=== PATIENT | male | born 1965 | race Caucasian/White ===

== ENCOUNTER 2016-11-27 10:39 | Inpatient (IN) | payer BC ==
[2016-11-27] MEDS ORDERED: ASPIRIN 81 MG CHEW PO STA (11:03)
[2016-11-27] MEDS ORDERED: NITROGLYCERIN OINT 1 INCH/GM PACKET TOPICAL STA (11:03)
--- NOTE | 2016-11-27 11:06 | ED ---
General Adult HPI - General Chief complaint: Chest Pain Stated complaint: Chest Pain Time Seen by Provider: 11/27/16 10:45 Source: patient, RN notes reviewed Mode of arrival: wheelchair Limitations: no limitations - History of Present Illness Initial comments: This is a 51-year-old male who presents to the emergency department with past medical history significant for myocardial infarction with a stent placement last year. Patient states he also has high blood pressure and high cholesterol and he has recently quit smoking. Patient states he was at work today not doing anything strenuous when he started having pain in the left side of his chest but also radiates down his arm made him short of breath and he was mildly diaphoretic. Patient denies any nausea or vomiting. Patient denies abdominal pain. Patient denies any lightheadedness dizziness or near syncopal episode. Patient denies any numbness or weakness. Patient denies any recent fever chills or cough. Patient denies any calf pain or leg swelling. - Related Data Home Medications Medication Instructions Recorded Confirmed Losartan-Hctz 50-12.5 mg [Hyzaar 1 tab PO DAILY 04/24/16 11/27/16 50-12.5] Omeprazole 20 mg PO DAILY 04/24/16 11/27/16 Atorvastatin [Lipitor] 80 mg PO HS 11/27/16 11/27/16 Previous Rx's Medication Instructions Recorded Metoprolol Tartrate [Lopressor] 25 mg PO BID #60 tab 04/27/16 Nitroglycerin Sl Tabs [Nitrostat] 0.4 mg SUBLINGUAL Q5M PRN #25 tab 04/27/16 Prasugrel [Effient] 10 mg PO DAILY #30 tab 04/27/16 Allergies Allergy/AdvReac Type Severity Reaction Status Date / Time No Known Allergies Allergy Verified 11/27/16 12:04 Review of Systems ROS Statement: Those systems with pertinent positive or pertinent negative responses have been documented in the HPI. ROS Other: All systems not noted in ROS Statement are negative. Past Medical History Past Medical History: Asthma, GERD/Reflux, Hyperlipidemia, Hypertension, Myocardial Infarction ([place]) Additional Past Medical History / Comment(s): "STATED HAD STRESS TEST AT [facility] FEBRUARY 18 2016 AND IT WAS NEG", 04-24-16 STEMI, KIDNEY STONE, DIVERTICULITIS, SEVERAL ABD INC HERNIA'S History of Any Multi-Drug Resistant Organisms: None Reported Past Surgical History: Unable to Obtain Additional Past Surgical History / Comment(s): 04-24-16 HEART CATH W/ STENT TO LAD. BOWEL RESECTION ,COLOSTOMY THEN REVERSAL-PT STATED HAS HAD TOTAL OF 7 SX FOR THIS, ABD HERNIA REPAIR W/ MESH. Past Anesthesia/Blood Transfusion Reactions: No Reported Reaction Past Psychological History: No Psychological Hx Reported Smoking Status: Former smoker Past Alcohol Use History: None Reported Additional Past Alcohol Use History / Comment(s): STARTED SMOKING AT AGE 15, SMOKES 1 PPD. Past Drug Use History: None Reported - Past Family History Father Family Medical History: Cancer, Congestive Heart Failure (CHF) Additional Family Medical History / Comment(s): COLON CANCER Mother Family Medical History: CVA/TIA Brother(s) Additional Family Medical History / Comment(s): brother has antithrombin III deficiency and cardiolipin antibody General Exam - General Exam Comments Initial Comments: GENERAL: Patient is well-developed and well-nourished. Patient is nontoxic and well- hydrated and is in mild distress. ENT: Neck is soft and supple. No significant lymphadenopathy is noted. Oropharynx is clear. Moist mucous membranes. Neck has full range of motion without eliciting any pain. EYES: The sclera were anicteric and conjunctiva were pink and moist. Extraocular movements were intact and pupils were equal round and reactive to light. Eyelids were unremarkable. PULMONARY: Unlabored respirations. Good breath sounds bilaterally. No audible rales rhonchi or wheezing was noted. CARDIOVASCULAR: There is a regular rate and rhythm without any murmurs gallops or rubs. ABDOMEN: Soft and nontender with normal bowel sounds. No palpable organomegaly was noted. There is no palpable pulsatile mass. SKIN: Skin is clear with no lesions or rashes and otherwise unremarkable. NEUROLOGIC: Patient is alert and oriented x3. Cranial nerves II through XII are grossly intact. Motor and sensory are also intact. Normal speech, volume and content. Symmetrical smile. MUSCULOSKELETAL: Normal extremities with adequate strength and full range of motion. No lower extremity swelling or edema. No calf tenderness. LYMPHATICS: No significant lymphadenopathy is noted PSYCHIATRIC: Normal psychiatric evaluation. Normal interpersonal interactions appears functionally intact in deals appropriately with others. No signs of depression. No signs of anxiety. Limitations: no limitations Course Vital Signs 11/27/16 11/27/16 11/27/16 10:42 11:14 11:21 Temperature 98.1 F Pulse Rate 68 55 L Respiratory 20 18 Rate Blood Pressure 132/80 127/71 113/69 O2 Sat by Pulse 99 98 Oximetry Medical Decision Making - Medical Decision Making EKG shows a sinus bradycardia at 49 bpm HI interval is 164 QRS is 88 QT interval 370 QTC is 374. Patient's EKG shows no ST segment depression or T- wave abdomen is noted Chest x-ray shows no acute abnormality. I placed the patient on heparin because of his past history as well as his clinical presentation today. I spoke with Dr. Garvin and he agreed to admit the patient admitted the patient and consult cardiology I continue the heparin Nitropaste and aspirin on the floor. I wrote admitting orders. - Lab Data Result diagrams: 11/27/16 11:00 11/27/16 11:00 Lab Results 11/27/16 11/27/16 11/27/16 Range/Units 11:00 11:00 11:00 WBC 7.8 (3.8-10.6) k/uL RBC 5.16 (4.30-5.90) m/uL Hgb 15.6 (13.0-17.5) gm/dL Hct 47.6 (39.0-53.0) % MCV 92.3 (80.0-100.0) fL MCH 30.2 (25.0-35.0) pg MCHC 32.8 (31.0-37.0) g/dL RDW 13.8 (11.5-15.5) % Plt Count 234 (150-450) k/uL Neutrophils % 71 % Lymphocytes % 19 % Monocytes % 6 % Eosinophils % 2 % Basophils % 1 % Neutrophils # 5.5 (1.3-7.7) k/uL Lymphocytes # 1.5 (1.0-4.8) k/uL Monocytes # 0.4 (0-1.0) k/uL Eosinophils # 0.2 (0-0.7) k/uL Basophils # 0.0 (0-0.2) k/uL PT (9.0-12.0) sec INR (<1.1) APTT (22.0-30.0) sec Sodium 139 (137-145) mmol/L Potassium 4.1 (3.5-5.1) mmol/L Chloride 103 (98-107) mmol/L Carbon Dioxide 28 (22-30) mmol/L Anion Gap 8 mmol/L BUN 15 (9-20) mg/dL Creatinine 0.80 (0.66-1.25) mg/dL Est GFR (MDRD) Af Amer >60 (>60 ml/min/1.73 sqM) Est GFR (MDRD) Non-Af >60 (>60 ml/min/1.73 sqM) Glucose 110 H (74-99) mg/dL Calcium 9.1 (8.4-10.2) mg/dL Magnesium 1.9 (1.6-2.3) mg/dL Total Bilirubin 0.9 (0.2-1.3) mg/dL AST 36 (17-59) U/L ALT 58 (21-72) U/L Alkaline Phosphatase 101 (38-126) U/L Total Creatine Kinase 362 H (55-170) U/L CK-MB (CK-2) 2.9 H* (0.0-2.4) ng/mL CK-MB (CK-2) Rel Index 0.8 Troponin I <0.012 (0.000-0.034) ng/mL Total Protein 7.1 (6.3-8.2) g/dL Albumin 4.2 (3.5-5.0) g/dL 11/27/16 Range/Units 11:00 WBC (3.8-10.6) k/uL RBC (4.30-5.90) m/uL Hgb (13.0-17.5) gm/dL Hct (39.0-53.0) % MCV (80.0-100.0) fL MCH (25.0-35.0) pg MCHC (31.0-37.0) g/dL RDW (11.5-15.5) % Plt Count (150-450) k/uL Neutrophils % % Lymphocytes % % Monocytes % % Eosinophils % % Basophils % % Neutrophils # (1.3-7.7) k/uL Lymphocytes # (1.0-4.8) k/uL Monocytes # (0-1.0) k/uL Eosinophils # (0-0.7) k/uL Basophils # (0-0.2) k/uL PT 10.7 (9.0-12.0) sec INR 1.1 (<1.1) APTT 23.4 (22.0-30.0) sec Sodium (137-145) mmol/L Potassium (3.5-5.1) mmol/L Chloride (98-107) mmol/L Carbon Dioxide (22-30) mmol/L Anion Gap mmol/L BUN (9-20) mg/dL Creatinine (0.66-1.25) mg/dL Est GFR (MDRD) Af Amer (>60 ml/min/1.73 sqM) Est GFR (MDRD) Non-Af (>60 ml/min/1.73 sqM) Glucose (74-99) mg/dL Calcium (8.4-10.2) mg/dL Magnesium (1.6-2.3) mg/dL Total Bilirubin (0.2-1.3) mg/dL AST (17-59) U/L ALT (21-72) U/L Alkaline Phosphatase (38-126) U/L Total Creatine Kinase (55-170) U/L CK-MB (CK-2) (0.0-2.4) ng/mL CK-MB (CK-2) Rel Index Troponin I (0.000-0.034) ng/mL Total Protein (6.3-8.2) g/dL Albumin (3.5-5.0) g/dL Critical Care Time Critical Care Time: Yes Total Critical Care Time: 35 Disposition Clinical Impression: Unstable angina pectoris Disposition: ADMITTED IP TO THIS [facility] Time of Disposition: 12:08
[2016-11-27 11:21] LABS: Basophils % (A) 1 %; CH 30.6; CHCM 33.3; Eosinophils # (A) 0.2 k/uL (0-0.7); Eosinophils % (A) 2 %; HCT 47.6 % (39.0-53.0); HDW 2.46; HGB 15.6 gm/dL (13.0-17.5); Luc # (Auto) 0.16; Luc % (Auto) 2; Lymphocytes # (A) 1.5 k/uL (1.0-4.8); Lymphocytes % (A) 19 %; MCH 30.2 pg (25.0-35.0); MCHC 32.8 g/dL (31.0-37.0); MCV 92.3 fL (80.0-100.0); Mean Platelet Volume 7.4; Monocytes # (A) 0.4 k/uL (0-1.0); Monocytes % (A) 6 %; Neutrophils # (A) 5.5 k/uL (1.3-7.7); Neutrophils % (A) 71 %; RBC 5.16 m/uL (4.30-5.90); RDW 13.8 % (11.5-15.5); WBC 7.8 k/uL (3.8-10.6)
[2016-11-27 11:26] LABS: ALT 58 U/L (21-72); AST 36 U/L (17-59); Alkaline Phosphatase 101 U/L (38-126); Anion Gap 8 mmol/L; Blood Urea Nitrogen 15 mg/dL (9-20); Calcium 9.1 mg/dL (8.4-10.2); Carbon Dioxide 28 mmol/L (22-30); Chloride 103 mmol/L (98-107); Glucose 110 mg/dL (74-99); Magnesium 1.9 mg/dL (1.6-2.3); Non-African American GFR(MDRD) >60 (>60 ml/min/1.73 sqM); Potassium 4.1 mmol/L (3.5-5.1); Sodium 139 mmol/L (137-145); Total Bilirubin 0.9 mg/dL (0.2-1.3); Total Protein 7.1 g/dL (6.3-8.2)
[2016-11-27 11:30] LABS: INR 1.1 (<1.1); Partial Thromboplastin Time 23.4 sec (22.0-30.0); Prothrombin Time 10.7 sec (9.0-12.0)
[2016-11-27 11:41] LABS: Creatine Kinase 362 U/L (55-170)
--- NOTE | 2016-11-27 11:47 | XR ---
EXAMINATION TYPE: XR chest 2V DATE OF EXAM: 11/27/2016 11:39 AM COMPARISON: Chest x-ray April 25, 2016. HISTORY: Chest pain today. TECHNIQUE: Frontal and lateral views of the chest are obtained. FINDINGS: There is no focal air space opacity, pleural effusion, or pneumothorax seen. The cardiac silhouette size is within normal limits. Atherosclerotic change aortic knob is seen. Exaggerated thor acic kyphosis is present. There is mild height loss or chronic compression fractures in the lower tho racic spine.. IMPRESSION: Chronic changes without acute pulmonary process.
[2016-11-27 11:53] LABS: Troponin I <0.012 ng/mL (0.000-0.034)
[2016-11-27 11:58] LABS: Creatine Kinase MB 2.9 ng/mL (0.0-2.4)
[2016-11-27] MEDS ORDERED: HEPARIN SODIUM,PORCINE 5,000 UNIT/ML 1 ML VIAL IV ONE (12:08)
[2016-11-27] MEDS ORDERED: NITROGLYCERIN SL TABS 0.4 MG TAB SUBLINGUAL PRN ×2 (12:09→16:50)
[2016-11-27] MEDS ORDERED: HEPARIN SODIUM,PORCINE/D5W PMX 25,000 UNIT in DEXTROSE/WATER 1 500ML.BAG IV SCH (12:15)
[2016-11-27] MEDS: NITROGLYCERIN OINT 1 INCH/GM PACKET TOPICAL SCH (12:19)
--- NOTE | 2016-11-27 14:51 | P.CRDCN ---
History of Present Illness Consult date: 11/27/16 Chief complaint: Chest discomfort History of present illness: This is a pleasant 51-year-old gentleman with a past medical history significant for coronary artery disease and status post a stenting of the LAD in March 2016, known intermediate disease involving the left circumflex, hypertension, dyslipidemia, presented to the hospital with a chest discomfort. He was at home yesterday when he was working on his computer and started experiencing chest discomfort, in the mid of the chest, as a tightness without any radiation. It reminded him with what he experienced before the stent back in March 2016. He took nitro with improvement of the symptoms but few minutes after he started experiencing chest pain again. He took another nitro and since then he has been pain-free. In March 2016, he presented with acute anterior [place] where he underwent an emergent heart catheterization and stenting of the LAD. He was found at that point to have an intermediate disease involving the left circumflex. The EKG showed sinus rhythm without any significant ST or T-wave abnormalities. We have only one set of cardiac enzymes within normal troponin and mildly abnormal CK-MB. I will follow-up was to more sets of serial Enzymes. Based on the clinical scenario over the next several hours as well as a blood work will decide between proceeding with a stress test or proceeding with heart catheterization. Symptoms seems to be concerning regarding PAD. Past Medical History Past Medical History: Asthma, GERD/Reflux, Hyperlipidemia, Hypertension, Myocardial Infarction ([place]), Renal Disease Additional Past Medical History / Comment(s): "STATED HAD STRESS TEST AT [facility] FEBRUARY 18 2016 AND IT WAS NEG", 04-24-16 STEMI, KIDNEY STONES-PASSED ON HIS OWN, DIVERTICULITIS, 4 ABD INC HERNIA'S AND HAS HAD SURGERY ON ONE OF THEM. Last Myocardial Infarction Date:: 04/24/16 History of Any Multi-Drug Resistant Organisms: None Reported Past Surgical History: Unable to Obtain, Bowel Resection Additional Past Surgical History / Comment(s): 04-24-16 HEART CATH W/ STENT TO LAD. BOWEL RESECTION OLGA TO DIVERTICULAR DX ,COLOSTOMY THEN REVERSAL-PT STATED HAS HAD TOTAL OF 7 SX FOR THIS, ABD HERNIA REPAIR W/ MESH, COLONOSCOPIES. Past Anesthesia/Blood Transfusion Reactions: No Reported Reaction Past Psychological History: No Psychological Hx Reported Additional Psychological History / Comment(s): PT RESIDES WITH HIS SPOUSE. HE IS INDEPENDENT. Smoking Status: Former smoker Past Alcohol Use History: None Reported Additional Past Alcohol Use History / Comment(s): STARTED SMOKING AT AGE 15, SMOKES 1 PPD. PATIENT QUIT SMOKING 04/24/16. Past Drug Use History: None Reported - Past Family History Father Family Medical History: Cancer, Congestive Heart Failure (CHF) Additional Family Medical History / Comment(s): COLON CANCER. FATHER OF CHF AT THE AGE OF 64YRS. Mother Family Medical History: CVA/TIA Additional Family Medical History / Comment(s): MOTHER AT THE AGE OF 86YRS FROM CVA. Brother(s) Additional Family Medical History / Comment(s): brother has antithrombin III deficiency and cardiolipin antibody Medications and Allergies Home Medications Medication Instructions Recorded Confirmed Type Losartan-Hctz 50-12.5 mg [Hyzaar 1 tab PO DAILY 04/24/16 11/27/16 History 50-12.5] Omeprazole 20 mg PO DAILY 04/24/16 11/27/16 History Aspirin 324 mg PO DAILY 11/27/16 11/27/16 History Atorvastatin [Lipitor] 80 mg PO HS 11/27/16 11/27/16 History Allergies Allergy/AdvReac Type Severity Reaction Status Date / Time No Known Allergies Allergy Verified 11/27/16 12:04 Physical Exam Vitals: Vital Signs Pulse Resp BP Pulse Ox 11/27/16 14:23 98 11/27/16 12:33 56 L 18 109/63 95 Intake and Output 11/26/16 11/27/16 11/27/16 22:59 06:59 14:59 Other: Voiding Method Toilet # Voids 1 - Constitutional General appearance: no acute distress - Respiratory Respiratory: bilateral: CTA - Cardiovascular Rhythm: regular Heart sounds: normal: S1, S2 Results 11/27/16 11:00 11/27/16 11:00 Current Medications Generic Name Dose Route Start Last Admin Trade Name Freq PRN Reason Stop Dose Admin Aspirin 325 mg 11/28/16 09:00 Aspirin PO DAILY [facility] Heparin Sodium/Dextrose 25,000 500 mls @ 19.95 mls/hr 11/27/16 12:15 12:26 unit/ IV Solution IV 8.31 units/kg/hr .Q24H IRMA 20 mls/hr Protocol Administration 8.3 UNITS/KG/HR Nitroglycerin 1 inch 11/27/16 18:00 11/27/16 12:19 Nitro-Bid Oint TOPICAL Not Given Q6HR IRMA Nitroglycerin 0.4 mg 11/27/16 12:09 Nitrostat SUBLINGUAL Q5M PRN Chest Pain Intake and Output 11/26/16 11/27/16 11/27/16 22:59 06:59 14:59 Other: Voiding Method Toilet # Voids 1 Assessment and Plan Plan: Assessment #1 intermittent episodes of chest discomfort #2 known CAD and status post a stenting of the LAD #3 dyslipidemia #4 history of smoking Plan #1 acute coronary syndrome to be ruled out #2 the patient stopped smoking #3 follow-up with the serial cardiac enzymes #4 follow-up with the patient
[2016-11-27 18:09] LABS: Creatine Kinase 252 U/L (55-170)
[2016-11-27 18:22] LABS: Creatine Kinase MB 2.3 ng/mL (0.0-2.4); Troponin I <0.012 ng/mL (0.000-0.034)
[2016-11-27] MEDS: METOPROLOL TARTRATE 25 MG TAB PO SCH (20:33)
[2016-11-27] MEDS ORDERED: ATORVASTATIN 80 MG TAB PO SCH (21:00)
[2016-11-28 00:40] LABS: Creatine Kinase 207 U/L (55-170)
[2016-11-28] MEDS: NITROGLYCERIN OINT 1 INCH/GM PACKET TOPICAL SCH ×4 (00:49→18:43)
[2016-11-28 00:53] LABS: Creatine Kinase MB 1.8 ng/mL (0.0-2.4); Troponin I <0.012 ng/mL (0.000-0.034)
[2016-11-28 08:05] LABS: Cholesterol 121 mg/dL (<200); HDL Cholesterol 32 mg/dL (40-60); Triglycerides 89 mg/dL (<150)
--- NOTE | 2016-11-28 08:22 | P.PN ---
Progress Note - Text This is a pleasant 51-year-old gentleman with a past medical history significant for coronary artery disease and status post a stenting of the LAD in March 2016, known intermediate disease involving the left circumflex, hypertension, dyslipidemia, presented to the hospital with a chest discomfort. He was at home yesterday when he was working on his computer and started experiencing chest discomfort, in the mid of the chest, as a tightness without any radiation. It reminded him with what he experienced before the stent back in March 2016. He took nitro with improvement of the symptoms but few minutes after he started experiencing chest pain again. He took another nitro and since then he has been pain-free. In March 2016, he presented with acute anterior [place] where he underwent an emergent heart catheterization and stenting of the LAD. He was found at that point to have an intermediate disease involving the left circumflex. The EKG showed sinus rhythm without any significant ST or T-wave abnormalities. The patient had 3 sets of cardiac enzymes came in to be unremarkable. I will pursue with a stress test and follow-up with the patient.
--- NOTE | 2016-11-28 08:56 | HP ---
DATE OF ADMISSION: 11/27/2016 CHIEF COMPLAINT: Chest pain. HISTORY OF PRESENT ILLNESS: This is another admission for this 51-year-old overweight male. In March, he had myocardial infarction with stent placement. He had an DC with stent placement and he has done fairly well. He did used to smoke up until and he has quit. On the day of admission, he had exactly the same pain associated with shortness of breath, diaphoresis, nausea. The only difference was at this time it did not radiate into the jaw. In the emergency room, his enzymes and EKG were unremarkable, but he was admitted for observation. REVIEW OF SYSTEMS: He has had no syncope, neurologic deficits, change in vision or hearing, cough, hemoptysis, murmurs, rheumatic fever, orthopnea, PND, abdominal pain, melena, knee, hematochezia, jaundice, hematuria, frequency, urgency, diabetes and he is not sure about his lipids. Past medical history, family history and personal and social histories are unremarkable and noncontributory except as mentioned. PAST SURGICAL HISTORY: He has had stent placed and subtotal colectomy for diverticulitis or diverticulosis. He is not allergic to any medication. MEDICATIONS: He is on: 1. Effient. 2. Lipitor. 3. Metoprolol. 4. Cozaar. 5. Aspirin. He no longer smokes. PHYSICAL EXAMINATION: Blood pressure 146/87 with a pulse of 79, respirations 30 and he is afebrile. GENERAL: Appeared to be overweight and in no acute distress. SKIN: Skin color is normal. Skin is warm and dry. Lymph nodes are not enlarged. Head, ears, eyes, nose, mouth, and throat were normal. NECK: Neck veins not distended. Thyroid is not enlarged. CHEST: Clear. CARDIAC: Demonstrates normal sinus rhythm with no murmurs or extra sounds. ABDOMEN: Soft, protuberant, nontender, without any visceromegaly or masses. Bowel sounds present. EXTREMITIES: Normal. Neurologically intact. IMPRESSION: 1. Acute coronary syndrome. 2. Coronary artery disease with recent myocardial infarction and stent placement. PLAN: 1. Bed rest. 2. IV fluids. 3. Serial EKGs and enzymes. 4. Cardiology consult.
[2016-11-28] MEDS ORDERED: ASPIRIN 325 MG TAB PO SCH (09:00)
[2016-11-28] MEDS: PANTOPRAZOLE 40 MG TABLET PO SCH (11:36)
[2016-11-28] MEDS: PRASUGREL 10 MG TAB PO SCH (11:36)
[2016-11-28] MEDS: LOSARTAN-HCTZ 50-12.5 MG 1 EACH TAB PO SCH (11:36)
[2016-11-28] MEDS: ASPIRIN 325 MG TAB PO SCH (11:36)
[2016-11-28] MEDS: METOPROLOL TARTRATE 25 MG TAB PO SCH ×2 (11:36→21:48)
--- NOTE | 2016-11-28 12:02 | EST ---
DATE OF SERVICE: 11/28/2016 AGE: 51Y SEX: M HT: 6'1" WT: 205 lbs. Protocol Jonnathan: X Other: Cardiolite Stress Stage: 4 Dur. of Exercise: 10:00 *Heart Rate Blood Pressure *Rest: 67 Rest: 145/84 * *Max. Achieved: 138 Maximum BP: 198/71 85% PMHR: 144 100% PMHR: 169 *METS: 10.5 INDICATIONS: Chest pain. MEDICATIONS: - Baseline EKG revealed a sinus mechanism without significant ST-T changes. Patient walked on standard Jonnathan protocol for 10 minutes, achieved a maximum heart rate of 138 beats per minute, which is less than 85% of predicted maximal. He developed fatigue and shortness of breath, but did not develop any angina. He had extreme shortness of breath and had cramps in his legs and therefore stress test had to be stopped. He had upsloping nonspecific ST segment changes not suggestive of ischemia, rare PVCs were noted. By EKG criteria, this is an inconclusive stress test with good exercise capacity. He had inadequate chronotropic response and therefore this is considered inconclusive. EKG changes did not suggest ischemia. The nuclear scan results, which are more pertinent, will be reported by the radiologist.
--- NOTE | 2016-11-28 12:11 | NM ---
EXAMINATION TYPE: NM stress cardiolite complete DATE OF EXAM: 11/28/2016 11:31 AM COMPARISON: Chest x-ray second of November 2016 HISTORY: Chest pain TECHNIQUE: After the intravenous administration of 10.4 mCi Tc 99m Sestamibi - Rest images obtained 45 minutes post injection. The patient exercised using a NIKOLE protocol and 1 minute prior to peak exercise was injected with 27 mCi Tc 99m Sestamibi - Stress images obtained 20 minutes post injection . Suboptimal stress level, 82% of predicted maximal heart rate achieved. FINDINGS: Targeted heart rate was achieved during performance of the study. Review of stress and rest SPECT sonali ges demonstrates some decreased radiopharmaceutical uptake along the inferior wall of the left ventri esperanza on stress images as compared to rest images especially towards the base of the heart. Gated anal ysis shows normal wall motion with an estimated left ventricular ejection fraction of 59 %. IMPRESSION: Findings suggestive of stress induced left ventricular myocardial ischemia along the inferior wall to wards the base of the heart, suboptimal stress
--- NOTE | 2016-11-28 16:01 | P.PN ---
Subjective 51-year-old male seen and examined who was admitted with chest pain. Cardiology consultation has been requested. Patient did undergo a stress test which was considered inconclusive EKGs did not suggest ischemia the nuclear study suggestive of stress-induced left ventricular myocardial ischemia along the inferior wall towards the base of the heart is suboptimal stress study Objective - Vital Signs Vital signs: Vital Signs Temp 98.0 F 11/28/16 11:45 Pulse 76 11/28/16 12:00 Resp 18 11/28/16 12:00 BP 134/82 11/28/16 11:45 Pulse Ox 98 11/28/16 11:45 Intake & Output 11/27/16 11/28/16 11/28/16 18:59 06:59 18:59 Intake Total 543.667 168.64 237 Balance 543.667 168.64 237 Weight 120.5 kg 120.5 kg Intake: Intake, IV Titration 123.667 168.64 Amount Heparin Sodium,Porcine/ 123.667 168.64 D5w Pmx 25,000 unit In Dextrose/Water 1 500ml. bag @ 8.3 UNITS/KG/HR 19. 95 mls/hr IV .Q24H [facility] Rx #:[id number] Oral 420 237 Other: Voiding Method Toilet Toilet Toilet # Voids 1 2 3 - Exam Physical exam Gen. alert and oriented 3 up ambulating denying chest pain Lungs essentially clear adequate air movement Heart S1-S2 audible regular Abdomen soft nontender Extremities no edema - Labs CBC & Chem 7: 11/27/16 11:00 11/27/16 11:00 Labs: Abnormal Lab Results - Last 24 Hours (Table) 11/27/16 11/27/16 11/27/16 Range/Units 17:27 17:27 23:58 APTT 30.1 H (22.0-30.0) sec Total Creatine Kinase 252 H 207 H (55-170) U/L HDL Cholesterol (40-60) mg/dL 11/27/16 11/28/16 11/28/16 Range/Units 23:58 06:48 06:48 APTT 31.6 H 40.4 H (22.0-30.0) sec Total Creatine Kinase (55-170) U/L HDL Cholesterol 32 L (40-60) mg/dL Assessment and Plan Plan: Impression Present on admission chest pain unclear etiology Stress Cardiolite findings suggestive of stress-induced left ventricular myocardial ischemia along the inferior wall History of hypertension Hyperlipidemia History of esophageal reflux Known coronary artery disease with prior stenting March 20162015 an acute myocardial infarction urgent heart catheterization with stenting of the LAD Heart catheterization March 2016 intermediate disease involving the left circumflex Plan Resume home meds as appropriate DVT and GI prophylaxis Will await cardiology input early pending Further recommendations to follow The above dictated assessment and findings were discussed with dr augustin. Impression and the plan of care have been dictated as directed. Cielo Wilson nurse practitioner acting as a scribe for dr augustin.
--- NOTE | 2016-11-28 16:15 | PN ---
DATE OF SERVICE: 11/28/2016 CHIEF COMPLAINT: Chest pain. HISTORY OF PRESENT ILLNESS: This gentleman is doing well. He has had no pain during the night. He is going for a stress test today. PHYSICAL EXAMINATION: CHEST: Clear. CARDIAC: Normal. ABDOMEN: Soft, nontender. IMPRESSION: 1. Chest pain. 2. Coronary artery disease. 3. Rule out myocardial infarction. 4. History of myocardial infarction last fall.
[2016-11-28] MEDS ORDERED: ALPRAZolam 0.5 MG TAB PO PRN (19:18)
[2016-11-28] MEDS ORDERED: ASPIRIN 325 MG TAB PO STA (19:18)
[2016-11-28] MEDS ORDERED: SODIUM CHLORIDE 0.9% 1,000 ML in EMPTY BAG 1 BAG IV ONE (19:18)
[2016-11-28] MEDS ORDERED: ALPRAZolam 0.25 MG TAB PO PRN (19:18)
[2016-11-28] MEDS ORDERED: ATORVASTATIN 80 MG TAB PO STA (19:18)
[2016-11-28] MEDS ORDERED: NITROGLYCERIN SL TABS 0.4 MG TAB SUBLINGUAL PRN (19:18)
[2016-11-29] MEDS: NITROGLYCERIN OINT 1 INCH/GM PACKET TOPICAL SCH ×4 (00:19→18:19)
[2016-11-29 04:21] VITALS: RESP 18
[2016-11-29] MEDS: ASPIRIN 325 MG TAB PO SCH (08:21)
[2016-11-29] MEDS: METOPROLOL TARTRATE 25 MG TAB PO SCH (08:22)
[2016-11-29] MEDS: LOSARTAN-HCTZ 50-12.5 MG 1 EACH TAB PO SCH (08:22)
[2016-11-29] MEDS: PRASUGREL 10 MG TAB PO SCH (08:22)
--- NOTE | 2016-11-29 10:33 | P.PN ---
Subjective 51-year-old being seen and examined this morning patient denies chest pain during the night patients being followed by cardiology services scheduled today for heart catheterization after patient underwent a stress test on the november stress Cardiolite findings suggestive of stress-induced left ventricular cardiac ischemia along the inferior wall Objective - Vital Signs Vital signs: Vital Signs Temp 97.6 F 11/29/16 08:00 Pulse 57 L 11/29/16 08:00 Resp 18 11/29/16 08:00 BP 110/65 11/29/16 08:00 Pulse Ox 94 L 11/29/16 08:00 - Exam Physical exam 51-year-old gentleman pleasant oriented 3 Lungs essentially clear on room air Heart S1-S2 audible regular abdomen soft nontender Extremities no edema - Labs CBC & Chem 7: 11/27/16 11:00 11/27/16 11:00 Assessment and Plan Plan: Impression Present on admission chest pain suspect due to coronary artery occlusive disease in a patient who has known coronary artery disease prior coronary stenting to the LAD Stress Cardiolite findings suggestive of stress-induced left ventricular myocardial ischemia along the inferior wall History of hypertension Hyperlipidemia History of esophageal reflux Known coronary artery disease with prior stenting March 20162015 an acute myocardial infarction urgent heart catheterization with stenting of the LAD Heart catheterization March 2016 intermediate disease involving the left circumflex Plan Resume home meds as appropriate DVT and GI prophylaxis Scheduled for heart catheterization today Further recommendations to follow The above dictated assessment and findings were discussed with dr augustin. Impression and the plan of care have been dictated as directed. Cielo Wilson nurse practitioner acting as a scribe for dr augustin. Time with Patient: Greater than 30
[2016-11-29] MEDS ORDERED: LIDOCAINE 2% INJ 20 MG/ML (20 ML MDV) ONE ×2 (12:16→12:46)
[2016-11-29] MEDS ORDERED: MIDAZOLAM 2 MG/2 ML VIAL ONE (12:17)
[2016-11-29] MEDS ORDERED: VERAPAMIL 2.5 MG/ML 2 ML AMP ONE (12:17)
[2016-11-29] MEDS ORDERED: fentaNYL (PF) 50 MCG/ML 2 ML AMP ONE (12:40)
[2016-11-29] MEDS ORDERED: MIDAZOLAM 2 MG/2 ML VIAL IV ONE (12:43)
[2016-11-29] MEDS ORDERED: fentaNYL (PF) 50 MCG/ML 2 ML AMP IV ONE (12:43)
[2016-11-29] MEDS ORDERED: LIDOCAINE 2% INJ 20 MG/ML IV ONE (12:46)
[2016-11-29] MEDS ORDERED: HEPARIN SODIUM 1,000 UNIT/ML VIAL ONE (12:46)
[2016-11-29] MEDS ORDERED: IV FLUID CONTINUATION 1,000 ML IV ONE (12:49)
[2016-11-29] MEDS ORDERED: HEPARIN SODIUM 1,000 UNIT/ML VIAL IV ONE (12:49)
[2016-11-29] MEDS ORDERED: SODIUM CHLORIDE 0.9% 1,000 ML IV ONE (12:49)
[2016-11-29] MEDS ORDERED: IOHEXOL 350 MG/ML 125ML BOTTLE INJ ONE (13:06)
[2016-11-29] MEDS ORDERED: RX INFO: IV CONTRAST WAS GIVEN 1 EACH MISC MISCELLANE PRN (13:16)
[2016-11-29 13:29] VITALS: TEMP 97.8
[2016-11-29] MEDS ORDERED: SODIUM CHLORIDE 0.9% 1,000 ML IV SCH (13:30)
[2016-11-29] MEDS: PANTOPRAZOLE 40 MG TABLET PO SCH (16:00)
[2016-11-29 16:02] VITALS: BP 145/84; PULSE 69
--- NOTE | 2016-11-29 16:06 | P.DS ---
Providers Date of admission: 11/29/16 10:26 Expected date of discharge: 11/29/16 Attending physician: Max Theodore Consults: Dr. Lloyd Primary care physician: [facility] Course: This is a pleasant 51-year-old gentleman with a past medical history significant for coronary artery disease and status post a stenting of the LAD in March 2016, known intermediate disease involving the left circumflex, hypertension, dyslipidemia, presented to the hospital with a chest discomfort. He was at home yesterday when he was working on his computer and started experiencing chest discomfort, in the mid of the chest, as a tightness without any radiation. It reminded him with what he experienced before the stent back in March 2016. He took nitro with improvement of the symptoms but few minutes after he started experiencing chest pain again. He took another nitro and since then he has been pain-free. In March 2016, he presented with acute anterior NE where he underwent an emergent heart catheterization and stenting of the LAD. He was found at that point to have an intermediate disease involving the left circumflex. The EKG showed sinus rhythm without any significant ST or T-wave abnormalities. A cardiology consultation was requested. Patient did undergo a Cardiolite stress test which was suggestive of stress-induced left ventricular cardiac ischemia along the inferior wall. Given the patient's clinical history of known coronary artery disease cardiology service offered the patient heart catheterization. Patient elected to proceed. And on November 29 underwent heart catheterization showed a patent stent to the LAD with no further intervention warranted at this time. Patient was pain-free and felt to be appropriate to be discharged home Impression discharge diagnosis Status post left heart catheterization to evaluate the coronary anatomy patent stent the LAD done on November 29 Present on admission chest pain suspect due to coronary artery occlusive disease in a patient who has known coronary artery disease prior coronary stenting to the LAD Stress Cardiolite findings suggestive of stress-induced left ventricular myocardial ischemia along the inferior wall History of hypertension Hyperlipidemia History of esophageal reflux Known coronary artery disease with prior stenting March 20162015 an acute myocardial infarction urgent heart catheterization with stenting of the LAD Heart catheterization March 2016 intermediate disease involving the left circumflex The above dictated assessment and findings were discussed with dr theodore. Impression and the plan of care have been dictated as directed. Cielo Wilson nurse practitioner acting as a scribe for dr theodore. Plan - Discharge Summary Discharge Medication List Losartan-Hctz 50-12.5 mg [Hyzaar 50-12.5] 1 tab PO DAILY 04/24/16 [History] Omeprazole 20 mg PO DAILY 04/24/16 [History] Metoprolol Tartrate [Lopressor] 25 mg PO BID #60 tab 04/27/16 [Rx] Nitroglycerin Sl Tabs [Nitrostat] 0.4 mg SUBLINGUAL Q5M PRN #25 tab 04/27/16 [Rx ] Prasugrel [Effient] 10 mg PO DAILY #30 tab 04/27/16 [Rx] Aspirin 324 mg PO DAILY 11/27/16 [History] Atorvastatin [Lipitor] 80 mg PO HS 11/27/16 [History] Follow up Appointment(s)/Referral(s): Lobito Pichardo DO [Primary Care Provider] - 1-2 days Epi Lloyd MD [STAFF PHYSICIAN] - 1 Week Activity/Diet/Wound Care/Special Instructions: Post op care after a heart catheterization instructions to be provided Discharge Disposition: HOME SELF-CARE
[2016-11-29] MEDS ORDERED: ATORVASTATIN 80 MG TAB PO SCH (21:00)
--- NOTE | 2016-11-29 22:44 | CC ---
DATE OF SERVICE: November 29, 2016. Performing physician: Epi Lloyd pain coordinator. PROCEDURE PERFORMED: 1. Selective right and left coronary angiogram. 2. Left heart catheterization. 3. Left ventriculography. INDICATION: This is a pleasant 51-year-old gentleman who is known to have CAD and prior stenting of the proximal LAD in the setting of acute anterior myocardial infarction, presented to the hospital with chest discomfort. He underwent myocardial perfusion imaging stress test which showed inferior ischemia. Approach: Right radial artery. COMPLICATIONS: None. Sedation: Moderate with a sedation length of 30 minutes. PROCEDURE DESCRIPTION: After obtaining informed consent, the patient was brought to the cardiac clinical lab assistant. Right radial artery was cannulated using micropuncture technique. Micropuncture wire passed easily, then I placed 6 Upper Sorbian sheath in the right radial artery. Subsequently, I did give the patient 2 mg of verapamil IV And 5000 units of heparin IV. After that, I did selective right and left coronary angiogram using JR4 and JL 3.5 catheters. I did after that left heart catheterization and LV gram using a 5 Upper Sorbian pigtail catheter. The procedure was completed without any complication. SELECTIVE CORONARY ANGIOGRAM: 1. The right coronary artery is a moderate-caliber vessel and it is a nondominant vessel. It is angiographically normal. 2. The left main is angiographically normal. It bifurcates into the left circumflex and left anterior descending artery. 3. Left circumflex is a large-caliber vessel and it is a dominant vessel. The proximal circumflex is angiographically normal. The mid circumflex has mild disease only and gives rises into first obtuse marginal branch, which has an ostial disease in the range of 50%. The left circumflex distally appeared to be angiographically normal and gives rises bifurcates into PDA and PLV branches. 4. Left anterior descending artery. The proximal LAD is stented, and the stent is patent. The mid LAD appeared to be normal and the LAD distally is normal. The LAD in the midportion gives rise into the first diagonal branch, which seems to be angiographically normal. HEMODYNAMICS: The left ventricular end-diastolic pressure was 18 mmHg and no gradient was identified across the aortic valve. Left ventriculography was performed in the LEE projection and using a power injection. The left ventricular systolic function is normal with EF about 50% to 55% and normal wall motion. CONCLUSION: 1. Intermediate disease involving the first obtuse marginal branch of the left circumflex appeared to be unchanged compared to before. 2. Patent stent in the proximal left anterior descending artery. 3. Normal left ventricular systolic function. POSTPROCEDURE MANAGEMENT: 1. Medical treatment. 2. Follow up with the patient.
--- NOTE | 2016-11-30 07:47 | PN ---
CHIEF COMPLAINT: Unstable angina. HISTORY OF PRESENT ILLNESS: This gentleman is doing well and a stent was placed. He may be going home today. PHYSICAL EXAM: Chest is clear. Cardiac exam is normal. ABDOMEN: Soft, nontender. IMPRESSION: 1. Unstable angina. 2. Coronary artery disease. 3. Chronic obstructive pulmonary disease. PLAN: Probably home today and this will be arranged by the nurse practitioner.
== END 2016-11-29 18:20 | disposition home or self-care (01) | DRG 287 ==
LOC: EC 10:39 → 3OBS 12:24 → OBSVTOIN 11-29 10:26
PROVIDERS: ADMIT Family Medicine; ATTEND Family Medicine
PROC: B2111ZZ Fluoroscopy of Multiple Coronary Arteries using Low Osmolar Contrast (ICD-10-PCS; 2016-11-29)
PROC: B2151ZZ Fluoroscopy of Left Heart using Low Osmolar Contrast (ICD-10-PCS; 2016-11-29)
PROC: 4A023N7 Measurement of Cardiac Sampling and Pressure, Left Heart, Percutaneous Approach (ICD-10-PCS; principal; 2016-11-29 12:08)
DX: I25.110 Atherosclerotic heart disease of native coronary artery with unstable angina pectoris (principal); I10 Essential (primary) hypertension; E78.5 Hyperlipidemia, unspecified; I25.2 Old myocardial infarction; Z95.5 Presence of coronary angioplasty implant and graft; J45.909 Unspecified asthma, uncomplicated; K21.9 Gastro-esophageal reflux disease without esophagitis; Z87.891 Personal history of nicotine dependence; Z87.442 Personal history of urinary calculi; Z79.02 Long term (current) use of antithrombotics/antiplatelets; Z79.82 Long term (current) use of aspirin; Z79.899 Other long term (current) drug therapy; Z82.49 Family history of ischemic heart disease and other diseases of the circulatory system; E66.3 Overweight; E78.00 Pure hypercholesterolemia, unspecified; J44.9 Chronic obstructive pulmonary disease, unspecified
CPT/HCPCS: 36415; 71020; 78452; 80053; 80061; 82550; 82553; 83735; 84484; 85025; 85610; 85730; 93005; 93017; 93458; 94760; 96374; 99291

== ENCOUNTER 2018-11-26 09:10 | Inpatient (IN) | payer BC ==
[2018-11-26 11:34] LABS: Basophils % (A) 0 %; Eosinophils # (A) 0.1 k/uL (0-0.7); Eosinophils % (A) 1 %; HCT 54.1 % (39.0-53.0); HGB 17.3 gm/dL (13.0-17.5); Lymphocytes # (A) 1.3 k/uL (1.0-4.8); Lymphocytes % (A) 15 %; MCH 29.3 pg (25.0-35.0); MCV 91.5 fL (80.0-100.0); Mean Platelet Volume 7.9; Monocytes # (A) 0.4 k/uL (0-1.0); Monocytes % (A) 5 %; Neutrophils # (A) 6.8 k/uL (1.3-7.7); Neutrophils % (A) 77 %; Platelet Count 248 k/uL (150-450); RBC 5.91 m/uL (4.30-5.90); RDW 14.8 % (11.5-15.5); WBC 8.8 k/uL (3.8-10.6)
[2018-11-26 11:53] LABS: Anion Gap 8 mmol/L; Blood Urea Nitrogen 15 mg/dL (9-20); Calcium 9.3 mg/dL (8.4-10.2); Carbon Dioxide 30 mmol/L (22-30); Chloride 103 mmol/L (98-107); Glucose 102 mg/dL (74-99); Potassium 4.5 mmol/L (3.5-5.1); Sodium 141 mmol/L (137-145)
--- NOTE | 2018-11-26 12:03 | ECHOS ---
STRESS ECHOCARDIOGRAM MEDICATIONS: Metoprolol, losartan, atorvastatin, omeprazole, aspirin, nitro, ProAir. BASELINE HEART RATE: 80 BASELINE BLOOD PRESSURE: 141/86 MAXIMUM HEART RATE: 135 MAXIMUM BLOOD PRESSURE: 213/71 85% MPHR: 142 100% MPHR: 167 METS: 8.3 MAXIMUM STAGE REACHED: III TOTAL EXERCISE TIME: 6:59 CLINICAL INFORMATION: Referred by Dr. Mcpherson for palpitations and evaluation of coronary artery disease and progression of coronary artery disease. He has had coronary stenting performed and has nonobstructive CAD. 1. Baseline heart rate 80 beats per minute. Baseline blood pressure 141/86 mmHg. Baseline 12-lead ECG shows sinus rhythm with early repolarization abnormality in the inferolateral leads. 2. Patient exercised on Jonnathan protocol for 7 minutes achieving a peak heart rate of 135 beats per minute. Normal blood pressure response to exercise. Initially, PVCs were noted. Subsequently, there was at least a [address]-depression upsloping, which progressed about 1.[address] depression. In addition, he had short runs of polymorphic VT nonsustained and he felt the palpitations. 3. At recovery, his ECG changes resolved quickly. 4. Baseline 2D echo images which is suboptimal, therefore Definity contrast was used. There was augmentation of overall LV contractility without development of any wall motion abnormalities. At recovery, regional global LV systolic function remained normal. IMPRESSION: 1. Abnormal ECG with upsloping 1.[address] depression with exercise. 2. Exercise-induced polymorphic VT, nonsustained. 3. No evidence of ischemia on stress echo, but the images despite Definity contrast were suboptimal with some off axis views. SUGGEST: Admit to the hospital for coronary angiography, given the event in the exercise induced arrhythmias and ST depression on ECG. This is an abnormal stress test. I did discuss this with Dr. Mcpherson. MMODL / IJN: [id number] /
[2018-11-26] MEDS ORDERED: ASPIRIN 325 MG TAB ONE (12:45)
[2018-11-26] MEDS ORDERED: ALPRAZolam 0.5 MG TAB PO PRN (12:47)
[2018-11-26] MEDS ORDERED: ALPRAZolam 0.25 MG TAB PO PRN (12:47)
[2018-11-26] MEDS ORDERED: SODIUM CHLORIDE 0.9% 1,000 ML in EMPTY BAG 1 BAG IV ONE (12:47)
[2018-11-26] MEDS ORDERED: ASPIRIN 325 MG TAB PO STA (12:47)
[2018-11-26] MEDS ORDERED: ATORVASTATIN 80 MG TAB PO STA (12:47)
[2018-11-26] MEDS ORDERED: NITROGLYCERIN SL TABS 0.4 MG TAB SUBLINGUAL PRN (12:47)
[2018-11-26] MEDS ORDERED: ASPIRIN 81 MG PO SCH (13:45)
[2018-11-26] MEDS: LOSARTAN-HCTZ 50-12.5 MG 1 EACH TAB PO SCH ×2 (13:58→18:19)
[2018-11-26] MEDS: METOPROLOL TARTRATE 25 MG TAB PO SCH ×2 (13:59→21:55)
[2018-11-26 16:39] VITALS: RESP 16
[2018-11-26] MEDS ORDERED: MIDAZOLAM (PF) 2 MG/2 ML VIAL IVP ONE (17:30)
[2018-11-26] MEDS ORDERED: IV FLUID CONTINUATION 500 ML IV ONE (17:31)
[2018-11-26] MEDS ORDERED: LIDOCAINE 1% INJ 10MG/ML (20 ML MDV) SQ ONE (17:35)
[2018-11-26] MEDS: VERAPAMIL SYRINGE (5 MG/10 ML) INTRACORON ONE ×2 (17:37→17:45)
[2018-11-26] MEDS ORDERED: HEPARIN SODIUM 1,000 UN/ML (10ML VL) IV ONE (17:39)
[2018-11-26] MEDS ORDERED: IOPAMIDOL-370 125ML BTL INJ ONE (17:44)
[2018-11-26] MEDS ORDERED: RX INFO: IV CONTRAST WAS GIVEN 1 EACH MISC MISCELLANE PRN (17:50)
[2018-11-26] MEDS ORDERED: SODIUM CHLORIDE 0.9% 1,000 ML IV SCH (18:00)
--- NOTE | 2018-11-26 21:47 | CC ---
CARDIAC CATHETERIZATION REPORT DATE OF SERVICE: 11/26/2018 PERFORMING PHYSICIAN: Epi Lloyd MD, auto machinist. PROCEDURES PERFORMED: 1. Selective right and left coronary angiogram. 2. Left heart catheterization. INDICATION: This is a pleasant 53-year-old gentleman who was scheduled to undergo a stress test by Dr. Mcpherson. This stress test came in to be ischemic with abnormal EKG as well as exercise-induced polymorphic VT. Because of that, a heart catheterization was advised. APPROACH: Right radial artery. COMPLICATIONS: None. LEVEL OF SEDATION: Moderate with sedation length of 14 minutes. PROCEDURE DESCRIPTION: After obtaining informed consent, the patient was brought to the cardiac laboratory monitor. The right radial artery was cannulated using micropuncture technique and the micropuncture wire passed easily. Then I placed a 6-Romanian sheath in the right radial artery. After that, I did give the patient 2 mg of verapamil IA. I did selective right and left coronary angiogram using JR4 and JL3.5 catheters. Left heart catheterization was performed using the JR4 catheter, which flipped into the LV. Then I did pullback across the aortic valve. The procedure was completed without any complication. SELECTIVE CORONARY ANGIOGRAM: 1. The right coronary artery is a moderate-caliber vessel. It is a nondominant vessel and appeared to be angiographically normal. 2. The left main is angiographically normal. It bifurcates into left circumflex and left anterior descending artery. 3. The left circumflex is a large-caliber vessel. It is a dominant vessel. The proximal left circumflex appeared to be angiographically normal. The mid circumflex has mild disease only and gives rise to a first OM branch which is a large-caliber vessel and has an ostial lesion in the range of 50%, seems to be unchanged compared to before. The left circumflex distally is normal and bifurcates into PDA and PLV branches; both are angiographically normal. 4. The LAD. The proximal LAD appeared to be angiographically normal. The mid LAD is stented and the stent is patent and the LAD distally is normal. The LAD gives rise to a large diagonal branch which seems to be normal. HEMODYNAMICS: The left ventricular end-diastolic pressure was about 10 mmHg without a gradient across the aortic valve. CONCLUSION: 1. Patent stent in the proximal left anterior descending artery. 2. Intermediate disease involving OM1 of left circumflex, and the disease seems to be unchanged compared to before. POST-PROCEDURE MANAGEMENT: Maximize medical treatment and follow up with the patient. MMODL / IJN: [id number] /
--- NOTE | 2018-11-26 21:53 | LTR ---
November 26, 2018 To: Dr. Dmitriy Mcpherson Re: Avel Gallagher ([phone]) Dear Dr. Mcpherson: MrAlison Gallagher underwent heart catheterization today that revealed patent stent in the LAD with intermediate disease involving the left circumflex. I want to thank you for allowing us to participate in his care. Please do not hesitate to call if you have any question or concerns. Sincerely, MD LIZET Knight / DMITRI: [id number] /
[2018-11-26 22:37] VITALS: BP 131/77; PULSE 61; TEMP 98
--- NOTE | 2018-11-27 10:00 | ECHOF ---
Referral Reason:VT MEASUREMENTS -------- HEIGHT: 185.4 cm WEIGHT: 127.0 kg BP: 167/88 IVSd: 1.5 cm (0.6 - 1.1) LVIDd: 4.1 cm (3.9 - 5.3) LVPWd: 1.6 cm (0.6 - 1.1) IVSs: 2.3 cm LVIDs: 2.6 cm LVPWs: 1.9 cm LA Diam: 3.7 cm (2.7 - 3.8) RVIDd: 3.2 cm (< 3.3) LAESV Index (A-L): 16.28 ml/m Ao Diam: 3.4 cm (2.0 - 3.7) EPSS: 1.1 cm MV E Mark Anthony: 0.60 m/s MV DecT: 342 ms MV A Mark Anthony: 0.86 m/s MV E/A Ratio: 0.70 MV EF SLOPE: 39.41 mm/s (70 - 150) MV EXCURSION: 12.78 mm (> 18.000) FINDINGS -------- Sinus rhythm. This was a technically difficult study with suboptimal views. The left ventricular size is normal. There is moderate concentric left ventricular hypertrophy. O verall left ventricular systolic function is normal with, an EF between 60 - 65 %. The right ventricle is normal in size. Normal LA size by volume 22+/-6 ml/m2. The right atrium is normal in size. Lumason used The aortic valve is trileaflet and appears structurally normal. Mild mitral annular calcification present. The tricuspid valve appears structurally normal. The pulmonic valve was not well visualized. The aortic root size is normal. Normal inferior vena cava with normal inspiratory collapse consistent with estimated right atrial pre ssure of 5 mmHg. There is no pericardial effusion. CONCLUSIONS -------- 1. Sinus rhythm. 2. This was a technically difficult study with suboptimal views. 3. The left ventricular size is normal. 4. There is moderate concentric left ventricular hypertrophy. 5. Overall left ventricular systolic function is normal with, an EF between 60 - 65 %. 6. The right ventricle is normal in size. 7. Normal LA size by volume 22+/-6 ml/m2. 8. The right atrium is normal in size. 9. Lumason used 10. The aortic valve is trileaflet and appears structurally normal. 11. Mild mitral annular calcification present. 12. The tricuspid valve appears structurally normal. 13. The pulmonic valve was not well visualized. 14. The aortic root size is normal. 15. Normal inferior vena cava with normal inspiratory collapse consistent with estimated right atrial pressure of 5 mmHg. 16. There is no pericardial effusion. PERINATAL EDUCATOR: Madeline Olivas RDCS
[2018-11-27] MEDS ORDERED: ATORVASTATIN 80 MG TAB PO SCH (21:00)
== END 2018-11-26 23:10 | disposition home or self-care (01) | DRG 287 ==
LOC: RADNMMAIN 09:10 → 3SCARD 10:23 → RADNMMAIN 10:25 → 3SCARD 13:43
PROVIDERS: ADMIT Internal Medicine Interventional Cardiology; ATTEND Internal Medicine Interventional Cardiology
PROC: B2111ZZ Fluoroscopy of Multiple Coronary Arteries using Low Osmolar Contrast (ICD-10-PCS; 2018-11-26)
PROC: 4A023N7 Measurement of Cardiac Sampling and Pressure, Left Heart, Percutaneous Approach (ICD-10-PCS; principal; 2018-11-26 17:06)
DX: I25.110 Atherosclerotic heart disease of native coronary artery with unstable angina pectoris (principal); I10 Essential (primary) hypertension; F17.210 Nicotine dependence, cigarettes, uncomplicated; E78.00 Pure hypercholesterolemia, unspecified; I49.3 Ventricular premature depolarization; E66.9 Obesity, unspecified; Z95.5 Presence of coronary angioplasty implant and graft; Z68.36 Body mass index [BMI] 36.0-36.9, adult; Z79.82 Long term (current) use of aspirin; Z79.899 Other long term (current) drug therapy
CPT/HCPCS: 80048; 83735; 85025; 93306; 93351; 93458

== ENCOUNTER 2019-07-27 10:09 | Observation (INO) | payer BC ==
[2019-07-27] MEDS ORDERED: NITROGLYCERIN OINT 1 INCH/GM PACKET TOPICAL STA (10:14)
--- NOTE | 2019-07-27 10:21 | ED ---
General Adult HPI - General Stated complaint: chest pain Time Seen by Provider: 07/27/19 10:10 Source: patient, EMS, RN notes reviewed Mode of arrival: EMS Limitations: no limitations - History of Present Illness Initial comments: Patient is a pleasant 53-year-old male presenting to the emergency Department with complaints of chest discomfort. Onset of symptoms was close to week ago. Symptoms have been waxing and waning, worse today. Discomfort feels sharp. There is some radiation towards the back. Symptoms significantly improved with nitroglycerin, patient took one of his own and further improved by 1 by EMS. No diaphoresis. No cough. Patient may feel slightly short of breath. There has been some mild nausea, more yesterday. Patient states symptoms feel similar to previous heart attack. discomfort is currently 3/10. - Related Data Home Medications Medication Instructions Recorded Confirmed Omeprazole 20 mg PO DAILY 04/24/16 07/27/19 Aspirin 324 mg PO DAILY 11/27/16 07/27/19 Albuterol Sulfate [Proair 1 puff INHALATION RT-DAILY 11/26/18 07/27/19 Respiclick] Atorvastatin [Lipitor] 80 mg PO HS 11/26/18 07/27/19 D-Methorphan/PE/Acetaminophen 2 cap PO Q4H PRN 07/27/19 07/27/19 [Vicks Dayquil Liquicaps] Valsartan/Hydrochlorothiazide 1 tab PO DAILY 07/27/19 07/27/19 [Valsartan-Hctz 160-12.5 mg Tab] Previous Rx's Medication Instructions Recorded Metoprolol Tartrate [Lopressor] 25 mg PO BID #60 tab 04/27/16 Nitroglycerin Sl Tabs [Nitrostat] 0.4 mg SUBLINGUAL Q5M PRN #25 tab 04/27/16 Allergies Allergy/AdvReac Type Severity Reaction Status Date / Time No Known Allergies Allergy Verified 07/27/19 11:17 Review of Systems ROS Statement: Those systems with pertinent positive or pertinent negative responses have been documented in the HPI. ROS Other: All systems not noted in ROS Statement are negative. Constitutional: Denies: fever Eyes: Denies: eye pain ENT: Denies: ear pain Respiratory: Denies: cough Cardiovascular: Reports: chest pain Endocrine: Denies: fatigue Gastrointestinal: Denies: abdominal pain Genitourinary: Denies: dysuria Musculoskeletal: Reports: as per HPI Skin: Denies: rash Neurological: Denies: weakness Past Medical History Past Medical History: Asthma, GERD/Reflux, Hyperlipidemia, Hypertension, Myocardial Infarction ([place]), Renal Disease Additional Past Medical History / Comment(s): "STATED HAD STRESS TEST AT [facility] FEBRUARY 18 2016 AND IT WAS NEG", 04-24-16 STEMI, KIDNEY STONES-PASSED ON HIS OWN, DIVERTICULITIS, 4 ABD INC HERNIA'S AND HAS HAD SURGERY ON ONE OF THEM. 11/26/18 CARDIAC CATH AFTER FAILED STRESS TEST. Last Myocardial Infarction Date:: 04/24/16 History of Any Multi-Drug Resistant Organisms: None Reported Past Surgical History: Unable to Obtain, Bowel Resection Additional Past Surgical History / Comment(s): 04-24-16 HEART CATH W/ STENT TO LAD. BOWEL RESECTION OLGA TO DIVERTICULAR DX ,COLOSTOMY THEN REVERSAL-PT STATED HAS HAD TOTAL OF 7 SX FOR THIS, ABD HERNIA REPAIR W/ MESH, COLONOSCOPIES. Past Anesthesia/Blood Transfusion Reactions: No Reported Reaction Past Psychological History: No Psychological Hx Reported Additional Psychological History / Comment(s): PT RESIDES WITH HIS SPOUSE. HE IS INDEPENDENT. Smoking Status: Former smoker Past Alcohol Use History: None Reported Additional Past Alcohol Use History / Comment(s): STARTED SMOKING AT AGE 15, SMOKES 1 PPD. PATIENT QUIT SMOKING 04/24/16. Past Drug Use History: None Reported - Past Family History Father Family Medical History: Cancer, Congestive Heart Failure (CHF) Additional Family Medical History / Comment(s): COLON CANCER. FATHER OF CHF AT THE AGE OF 64YRS. Mother Family Medical History: CVA/TIA Additional Family Medical History / Comment(s): MOTHER AT THE AGE OF 86YRS FROM CVA. Brother(s) Additional Family Medical History / Comment(s): brother has antithrombin III deficiency and cardiolipin antibody General Exam Limitations: no limitations General appearance: alert, in no apparent distress Head exam: Present: normocephalic Eye exam: Present: normal appearance, PERRL ENT exam: Present: normal oropharynx Neck exam: Present: normal inspection Respiratory exam: Present: normal lung sounds bilaterally, chest wall tenderness (mild tenderness left anterior chest) Cardiovascular Exam: Present: regular rate, normal rhythm Expanded Peripheral pulses: 2+: Radial (R), Radial (L), Posterior Tibialis (R), Posterior Tibialis (L), Dorsalis Pedis (R), Dorsalis Pedis (L) GI/Abdominal exam: Present: soft. Absent: tenderness Extremities exam: Present: normal inspection. Absent: pedal edema, calf tenderness Back exam: Present: normal inspection. Absent: tenderness Neurological exam: Present: alert Psychiatric exam: Present: normal affect, normal mood Skin exam: Present: normal color Course Vital Signs 07/27/19 07/27/19 07/27/19 10:11 10:21 10:30 Temperature 98.9 F Pulse Rate 103 H 62 Pulse Rate [ 103 H Senior Product Designer ] Respiratory 18 10 L Rate Blood Pressure 110/74 110/74 O2 Sat by Pulse 93 L 93 L 95 Oximetry 07/27/19 07/27/19 10:34 11:00 Temperature Pulse Rate 60 Pulse Rate [ Senior Product Designer ] Respiratory 18 13 Rate Blood Pressure 112/81 O2 Sat by Pulse 96 Oximetry EKG Findings - EKG Comments: EKG Findings:: No sinus rhythm 68. ME 172. QRS 88. QT 354. QTC 372. Normal axis. Normal QRS. No acute ST change. Medical Decision Making - Medical Decision Making Patient reevaluated and resting comfortably in bed. Patient updated on results and plan. [facility] group has been paged, covering for Dr. Burton, who admits for Dr. Mcpherson. Case was discussed with Dr. Adams, who will admit. - Lab Data Result diagrams: 07/27/19 10:30 07/27/19 10:30 Lab Results 07/27/19 07/27/19 07/27/19 Range/Units 10:30 10:30 10:30 WBC 10.4 (3.8-10.6) k/uL RBC 5.42 (4.30-5.90) m/uL Hgb 16.0 (13.0-17.5) gm/dL Hct 49.6 (39.0-53.0) % MCV 91.6 (80.0-100.0) fL MCH 29.6 (25.0-35.0) pg MCHC 32.3 (31.0-37.0) g/dL RDW 13.5 (11.5-15.5) % Plt Count 221 (150-450) k/uL Neutrophils % 83 % Lymphocytes % 10 % Monocytes % 5 % Eosinophils % 2 % Basophils % 0 % Neutrophils # 8.6 H (1.3-7.7) k/uL Lymphocytes # 1.0 (1.0-4.8) k/uL Monocytes # 0.5 (0-1.0) k/uL Eosinophils # 0.2 (0-0.7) k/uL Basophils # 0.0 (0-0.2) k/uL PT 9.8 (9.0-12.0) sec INR 0.9 (<1.2) APTT 22.7 (22.0-30.0) sec D-Dimer 0.45 (<0.60) mg/L FEU Sodium 139 (137-145) mmol/L Potassium 4.5 (3.5-5.1) mmol/L Chloride 105 (98-107) mmol/L Carbon Dioxide 26 (22-30) mmol/L Anion Gap 8 mmol/L BUN 16 (9-20) mg/dL Creatinine 0.76 (0.66-1.25) mg/dL Est GFR (CKD-EPI)AfAm >90 (>60 ml/min/1.73 sqM) Est GFR (CKD-EPI)NonAf >90 (>60 ml/min/1.73 sqM) Glucose 116 H (74-99) mg/dL Calcium 8.8 (8.4-10.2) mg/dL Magnesium 2.1 (1.6-2.3) mg/dL Total Bilirubin 0.7 (0.2-1.3) mg/dL AST 39 (17-59) U/L ALT 50 H (4-49) U/L Alkaline Phosphatase 109 (38-126) U/L Troponin I (0.000-0.034) ng/mL Total Protein 6.6 (6.3-8.2) g/dL Albumin 3.9 (3.5-5.0) g/dL 07/27/19 Range/Units 10:30 WBC (3.8-10.6) k/uL RBC (4.30-5.90) m/uL Hgb (13.0-17.5) gm/dL Hct (39.0-53.0) % MCV (80.0-100.0) fL MCH (25.0-35.0) pg MCHC (31.0-37.0) g/dL RDW (11.5-15.5) % Plt Count (150-450) k/uL Neutrophils % % Lymphocytes % % Monocytes % % Eosinophils % % Basophils % % Neutrophils # (1.3-7.7) k/uL Lymphocytes # (1.0-4.8) k/uL Monocytes # (0-1.0) k/uL Eosinophils # (0-0.7) k/uL Basophils # (0-0.2) k/uL PT (9.0-12.0) sec INR (<1.2) APTT (22.0-30.0) sec D-Dimer (<0.60) mg/L FEU Sodium (137-145) mmol/L Potassium (3.5-5.1) mmol/L Chloride (98-107) mmol/L Carbon Dioxide (22-30) mmol/L Anion Gap mmol/L BUN (9-20) mg/dL Creatinine (0.66-1.25) mg/dL Est GFR (CKD-EPI)AfAm (>60 ml/min/1.73 sqM) Est GFR (CKD-EPI)NonAf (>60 ml/min/1.73 sqM) Glucose (74-99) mg/dL Calcium (8.4-10.2) mg/dL Magnesium (1.6-2.3) mg/dL Total Bilirubin (0.2-1.3) mg/dL AST (17-59) U/L ALT (4-49) U/L Alkaline Phosphatase (38-126) U/L Troponin I <0.012 (0.000-0.034) ng/mL Total Protein (6.3-8.2) g/dL Albumin (3.5-5.0) g/dL - Radiology Data Radiology results: image reviewed (Chest x-ray shows no acute process) Disposition Clinical Impression: Chest pain Disposition: ADMITTED IP TO THIS [facility] Is patient prescribed a controlled substance at d/c from ED?: No Decision Time: 12:05
[2019-07-27 10:58] LABS: Basophils % (A) 0 %; Eosinophils # (A) 0.2 k/uL (0-0.7); Eosinophils % (A) 2 %; HCT 49.6 % (39.0-53.0); Lymphocytes % (A) 10 %; MCH 29.6 pg (25.0-35.0); MCHC 32.3 g/dL (31.0-37.0); MCV 91.6 fL (80.0-100.0); Monocytes # (A) 0.5 k/uL (0-1.0); Monocytes % (A) 5 %; Neutrophils # (A) 8.6 k/uL (1.3-7.7); Neutrophils % (A) 83 %; Platelet Count 221 k/uL (150-450); RBC 5.42 m/uL (4.30-5.90); RDW 13.5 % (11.5-15.5); WBC 10.4 k/uL (3.8-10.6)
[2019-07-27 11:11] LABS: ALT 50 U/L (4-49); AST 39 U/L (17-59); African American GFR (CKD) >90 (>60 ml/min/1.73 sqM); Albumin 3.9 g/dL (3.5-5.0); Alkaline Phosphatase 109 U/L (38-126); Anion Gap 8 mmol/L; Blood Urea Nitrogen 16 mg/dL (9-20); Calcium 8.8 mg/dL (8.4-10.2); Carbon Dioxide 26 mmol/L (22-30); Chloride 105 mmol/L (98-107); Glucose 116 mg/dL (74-99); Magnesium 2.1 mg/dL (1.6-2.3); Non-African American GFR(CKD) >90 (>60 ml/min/1.73 sqM); Sodium 139 mmol/L (137-145); Total Bilirubin 0.7 mg/dL (0.2-1.3); Total Protein 6.6 g/dL (6.3-8.2)
--- NOTE | 2019-07-27 11:13 | XR ---
EXAMINATION TYPE: XR chest 2V DATE OF EXAM: 07/27/2019 COMPARISON: 11/27/2016 TECHNIQUE: PA and lateral views submitted. HISTORY: Chest pain FINDINGS: The lungs are clear and there is no pneumothorax, pleural effusion, or focal pneumonia. Prominent p ericardial fat pad in the right cardiophrenic angle. Curvature the spine with degenerative and hypert rophic changes. Atherosclerotic change aorta. No overt failure. Apical pleural thickening. Degenerati ve change of the spine. IMPRESSION: 1. No acute process.
[2019-07-27 11:28] LABS: D-Dimer 0.45 mg/L FEU (<0.60); INR 0.9 (<1.2); Partial Thromboplastin Time 22.7 sec (22.0-30.0); Prothrombin Time 9.8 sec (9.0-12.0)
[2019-07-27 11:35] LABS: Potassium 4.5 mmol/L (3.5-5.1)
[2019-07-27] MEDS ORDERED: NITROGLYCERIN SL TABS 0.4 MG TAB SUBLINGUAL PRN (12:05)
[2019-07-27] MEDS ORDERED: NALOXONE 0.4 MG/ML 1 ML VIAL IV PRN (14:43)
[2019-07-27] MEDS ORDERED: ACETAMINOPHEN TAB 325 MG TAB PO PRN (14:43)
[2019-07-27] MEDS ORDERED: ONDANSETRON 4 MG/2 ML VIAL IVP PRN (14:43)
[2019-07-27] MEDS ORDERED: HYDROcodone/APAP 5-325MG 1 EACH TAB PO PRN (14:43)
[2019-07-27] MEDS ORDERED: HEPARIN SODIUM,PORCINE 5,000 UNIT/ML 1 ML VIAL IV PRN (14:44)
[2019-07-27] MEDS ORDERED: HEPARIN SODIUM,PORCINE 5,000 UNIT/ML 1 ML VIAL IV ONE (14:44)
[2019-07-27] MEDS ORDERED: HEPARIN SOD,PORK IN 0.45% NACL 25,000 UNIT in 0.45% NACL 1 250ML.BAG IV SCH (14:45)
--- NOTE | 2019-07-27 14:48 | P.HPIM ---
History of Present Illness H&P Date: 07/27/19 Chief Complaint: chest pain Patient is a 53-year-old female with past medical history of coronary artery disease with ST segment elevated myocardial infarction requiring stent to the LAD in 2016, hypertension, dyslipidemia, borderline diabetes mellitus, and prior single episode of A. fib who presented to the emergency department with complaints of chest pain. In the emergency department he underwent an extensive evaluation. On arrival his vital signs were within normal limits. Initial EKG showed normal sinus rhythm at a rate of 68, no significant ST-T wave changes, [place] 172, QRS 88, QT 376. Initial troponin was negative. Laboratory analysis was unremarkable. He had Nitropaste applied to the emergency department and had already taken a dose of aspirin. Arrangements were made for chest pain observation. Patient seen and examined at bedside in the emergency department with family present. He reports that he has been having left-sided chest pain for the last 7-8 days. He describes it as in the center of his chest with radiation to his back and between his shoulder blades. He states that it has been intermittent and has been happening more frequently. He reports that yesterday he had significant chest pain associated with jaw pain and diaphoresis but no shortness of breath or lightheadedness. At that point in time he took a nitroglycerin his pain improved. Today he went to work and again started having chest pain. This time he had jaw pain and shortness of breath. He took a nitro became very lightheaded and felt as though he would pass out. He then presented to the ER. His chest pain has resolved with placement of Nitropaste. He reports that he has had some intermittent palpitations for the last 2 days and did have an history of atrial fibrillation after his myocardial infarction in 2016. He also states that he woke with some congestion and a cough productive of clear sputum associated with a postnasal drip and some right ear pain. He denies any recent changes in medications, he has not missed any doses of medications, no significant change in diet. 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 His last heart cath was done in November 2018 and demonstrated a patent stent to the LAD with intermittent disease OM1 with 50% stenosis. At that point in time the elected for medical management as his blockages were improved. He also reports that he had a normal stress test one month prior to his ST segment elevated myocardial infarction in 2016, and then he failed his last stress test with Dr. Lloyd and had to proceed with cath. Review of Systems Pertinent positives and negatives as discussed in HPI, a complete review of systems was performed and all other systems are negative. Past Medical History Past Medical History: Asthma, GERD/Reflux, Hyperlipidemia, Hypertension, Myocardial Infarction ([place]) Additional Past Medical History / Comment(s): "STATED HAD STRESS TEST AT [facility] FEBRUARY 18 2016 AND IT WAS NEG", 04-24-16 STEMI, KIDNEY STONES-PASSED ON HIS OWN, DIVERTICULITIS, 4 ABD INC HERNIA'S AND HAS HAD SURGERY ON ONE OF THEM. 11/26/18 CARDIAC CATH AFTER FAILED STRESS TEST. Last Myocardial Infarction Date:: 04/24/16 History of Any Multi-Drug Resistant Organisms: None Reported Past Surgical History: Unable to Obtain, Bowel Resection Additional Past Surgical History / Comment(s): 04-24-16 HEART CATH W/ STENT TO LAD. BOWEL RESECTION OLGA TO DIVERTICULAR DX ,COLOSTOMY THEN REVERSAL-PT STATED HAS HAD TOTAL OF 7 SX FOR THIS, ABD HERNIA REPAIR W/ MESH, COLONOSCOPIES. Past Anesthesia/Blood Transfusion Reactions: No Reported Reaction Past Psychological History: No Psychological Hx Reported Additional Psychological History / Comment(s): PT RESIDES WITH HIS SPOUSE. HE IS INDEPENDENT. Smoking Status: Former smoker Past Alcohol Use History: None Reported Additional Past Alcohol Use History / Comment(s): STARTED SMOKING AT AGE 15, SMOKES 1/2 PPD Past Drug Use History: None Reported Additional History: Lives with his . 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 - Past Family History Father Family Medical History: Cancer, Congestive Heart Failure (CHF) Additional Family Medical History / Comment(s): COLON CANCER. FATHER OF CHF AT THE AGE OF 64YRS. Mother Family Medical History: CVA/TIA Additional Family Medical History / Comment(s): MOTHER AT THE AGE OF 86YRS FROM CVA. Brother(s) Additional Family Medical History / Comment(s): brother has antithrombin III deficiency and cardiolipin antibody Medications and Allergies Home Medications Medication Instructions Recorded Confirmed Type Omeprazole 20 mg PO DAILY 04/24/16 07/27/19 History Metoprolol Tartrate [Lopressor] 25 mg PO BID #60 tab 04/27/16 07/27/19 Rx Nitroglycerin Sl Tabs [Nitrostat] 0.4 mg SUBLINGUAL Q5M PRN #25 tab 04/27/16 07/27/19 Rx Aspirin 324 mg PO DAILY 11/27/16 07/27/19 History Albuterol Sulfate [Proair 1 puff INHALATION RT-DAILY 11/26/18 07/27/19 History Respiclick] Atorvastatin [Lipitor] 80 mg PO HS 11/26/18 07/27/19 History D-Methorphan/PE/Acetaminophen 2 cap PO Q4H PRN 07/27/19 07/27/19 History [Vicks Dayquil Liquicaps] Valsartan/Hydrochlorothiazide 1 tab PO DAILY 07/27/19 07/27/19 History [Valsartan-Hctz 160-12.5 mg Tab] Allergies Allergy/AdvReac Type Severity Reaction Status Date / Time No Known Allergies Allergy Verified 07/27/19 11:17 Physical Exam Osteopathic Statement: *. No significant issues noted on an osteopathic structural exam other than those noted in the History and Physical/Consult. Vitals: Vital Signs Temp Pulse Pulse Resp BP Pulse Ox 07/27/19 11:00 60 13 112/81 96 07/27/19 10:34 18 07/27/19 10:30 62 103 H 10 L 110/74 95 07/27/19 10:21 93 L 07/27/19 10:11 98.9 F 103 H 18 110/74 93 L Intake and Output 07/26/19 07/27/19 07/27/19 22:59 06:59 14:59 Other: Weight 117.435 kg General: non toxic, no distress, appears at stated age, obese Derm: no unusual rashes/lesions no unusual ecchymoses, warm, dry Head: atraumatic, normocephalic, symmetric Eyes: EOMI, no lid lag, anicteric sclera, pupils equal round reactive to light ENT: Nose and ears atraumatic, no thrush, + pharyngeal erythema, + post nasal drip, + loss of cone of light right tympanic membrane Neck: No thyromegaly, no cervical lymphadenopathy, trachea midline, supple Mouth: no lip lesion, mucus membranes moist Cardiovascular: S1S2 reg, no murmur, positive posterior tibial pulse bilateral, no edema, capillary refill less than 2 seconds Lungs: CTA bilateral, no rhonchi, no rales , no accessory muscle use Abdominal: soft, nontender to palpation, no guarding, no appreciable organomegaly, normal bowel sounds Ext: no gross muscle atrophy, muscle strength 5 out of 5 in all 4 extremities grossly, no contractures, Neuro: CN II-XI grossly intact, light touch intact all 4 extremities, finger to nose within normal limits, Psych: Alert, oriented, appropriate affect Results CBC & Chem 7: 07/27/19 10:30 07/27/19 10:30 Labs: Abnormal Lab Results - Last 24 Hours (Table) 07/27/19 07/27/19 Range/Units 10:30 10:30 Neutrophils # 8.6 H (1.3-7.7) k/uL Glucose 116 H (74-99) mg/dL ALT 50 H (4-49) U/L Chest x-ray: report reviewed Thrombosis Risk Factor Assmnt - DVT/VTE Prophylaxis DVT/VTE Prophylaxis: Pharmacologic Prophylaxis ordered Assessment and Plan Assessment: Unstable angina with history of coronary artery disease -Aspirin, beta nga, continue with nitro paste, and heparin drip -Trend troponins -Telemetry -Cardiology consultation -Nothing by mouth after midnight Hypertension, controlled - resume home metoprolol, valsartan/hctz - follow BP Dyslipidemia - statin Borderline diabetes - follow BS - check A1C GERD - PPI History of 1 episode of A. fib - tele Obesity with BMI 34.2 - outpatient structured weight loss The patient is placed in observation with an anticipated less than 2 midnight stay for evaluation of chest pain. Surrogate decision-maker: CODE STATUS: Full DVT prophylaxis: Heparin gtt Discussed with: Patient, nursing, ED physician Anticipated discharge date: 1-[address]: home A total of 35 minutes was spent on the care of this complex patient more than 50% of the time was spent in counseling and care coordination.
[2019-07-27] MEDS: NITROGLYCERIN OINT 1 INCH/GM PACKET TOPICAL SCH ×2 (17:53→23:17)
[2019-07-27] MEDS: LORATADINE 10 MG TAB PO SCH (20:03)
[2019-07-27] MEDS: METOPROLOL TARTRATE 25 MG TAB PO SCH (20:03)
[2019-07-27] MEDS: FLUTICASONE 50MCG/SPRAY NASAL 16GM EA NOSTRIL SCH (20:31)
[2019-07-27] MEDS ORDERED: ATORVASTATIN 80 MG TAB PO SCH (21:00)
[2019-07-28 00:03] VITALS: RESP 18
[2019-07-28] MEDS: NITROGLYCERIN OINT 1 INCH/GM PACKET TOPICAL SCH (04:07)
[2019-07-28 06:57] LABS: Basophils % (A) 0 %; Eosinophils # (A) 0.1 k/uL (0-0.7); Eosinophils % (A) 2 %; HCT 46.4 % (39.0-53.0); HGB 15.1 gm/dL (13.0-17.5); Lymphocytes % (A) 13 %; MCH 29.9 pg (25.0-35.0); MCHC 32.5 g/dL (31.0-37.0); MCV 92.2 fL (80.0-100.0); Mean Platelet Volume 8.3; Monocytes # (A) 0.4 k/uL (0-1.0); Monocytes % (A) 6 %; Neutrophils # (A) 5.7 k/uL (1.3-7.7); Neutrophils % (A) 78 %; Platelet Count 183 k/uL (150-450); RBC 5.04 m/uL (4.30-5.90); RDW 13.6 % (11.5-15.5); WBC 7.4 k/uL (3.8-10.6)
[2019-07-28 07:18] LABS: African American GFR (CKD) >90 (>60 ml/min/1.73 sqM); Anion Gap 6 mmol/L; Blood Urea Nitrogen 13 mg/dL (9-20); Calcium 8.4 mg/dL (8.4-10.2); Carbon Dioxide 27 mmol/L (22-30); Chloride 104 mmol/L (98-107); Cholesterol 108 mg/dL (<200); Glucose 100 mg/dL (74-99); HDL Cholesterol 21 mg/dL (40-60); LDL Cholesterol,Calculated 68 mg/dL (0-99); Non-African American GFR(CKD) >90 (>60 ml/min/1.73 sqM); Potassium 4.4 mmol/L (3.5-5.1); Sodium 137 mmol/L (137-145); Triglycerides 95 mg/dL (<150)
[2019-07-28] MEDS ORDERED: ALBUTEROL NEBULIZED 2.5 MG/3 ML INHALATION SCH (08:00)
[2019-07-28] MEDS ORDERED: FLUTICASONE 50MCG/SPRAY NASAL 16GM EA NOSTRIL SCH (09:00)
[2019-07-28] MEDS ORDERED: PANTOPRAZOLE 40 MG TABLET PO SCH (09:00)
[2019-07-28] MEDS ORDERED: ASPIRIN 325 MG TAB PO SCH (09:00)
[2019-07-28] MEDS ORDERED: HYDROCHLOROTHIAZIDE 12.5 MG CAP PO SCH (09:00)
[2019-07-28] MEDS ORDERED: ASPIRIN 81 MG PO SCH (09:00)
[2019-07-28] MEDS ORDERED: VALSARTAN 160 MG TAB PO SCH (09:00)
--- NOTE | 2019-07-28 09:23 | P.CRDCN ---
History of Present Illness Consult date: 07/28/19 Requesting physician: Destiny Adams Reason for Consult (text): chest pain Chief complaint: chest pain History of present illness: This pleasant 53-year-old gentleman who follows with Dr. Lloyd the office. Has a history of CAD, status post stenting of the proximal LAD in 2016 with repeat cath in 2017 showing patent stent with intermediate disease involving the OM1 unchanged since 2016, hypertension, hyperlipidemia, obstructive sleep apnea, borderline diabetes and obesity as well as nicotine dependence, currently using a vape pen and nicotine tablets. In November of this year was in to see his primary care physician who ordered a stress echo at which time he developed some multifocal PVCs and EKG changes with a normal echo response activity and was cathed at that time which showed patent stent in the proximal LAD with intermediate disease involving the OM which was stable. Discharge follow-up with Dr. Evangelista after that with n event monitor which came in to be normal without any arrhythmia. Presented to the emergency department via EMS due to complaints of intermittent sharp chest discomfort radiating to his back usually occurring with driving. 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 The pain was relieved with one more nitro and Nitropaste. EKG on admission showed sinus rhythm with no ischemic changes. Chest x-ray showed no acute process. A value showed a normal d-dimer, troponin negative 3, BUN of 16, creatinine 0.76. He's been started on Nitropaste and heparin drip. Patient has been pain-free since admission. Upon examination, is resting comfortably in bed. He denies any shortness of breath, dizziness, lightheadedness, edema, orthopnea or palpitations. Past Medical History Past Medical History: Asthma, GERD/Reflux, Hyperlipidemia, Hypertension, Myocardial Infarction (LA) Additional Past Medical History / Comment(s): "STATED HAD STRESS TEST AT [facility] FEBRUARY 18 2016 AND IT WAS NEG", 04-24-16 STEMI, KIDNEY STONES-PASSED ON HIS OWN, DIVERTICULITIS, 4 ABD INC HERNIA'S AND HAS HAD SURGERY ON ONE OF THEM. 11/26/18 CARDIAC CATH AFTER FAILED STRESS TEST. Last Myocardial Infarction Date:: 04/24/16 History of Any Multi-Drug Resistant Organisms: None Reported Past Surgical History: Unable to Obtain, Bowel Resection Additional Past Surgical History / Comment(s): 04-24-16 HEART CATH W/ STENT TO LAD. BOWEL RESECTION OLGA TO DIVERTICULAR DX ,COLOSTOMY THEN REVERSAL-PT STATED HAS HAD TOTAL OF 7 SX FOR THIS, ABD HERNIA REPAIR W/ MESH, COLONOSCOPIES. Past Anesthesia/Blood Transfusion Reactions: No Reported Reaction Date of Last Stent Placement:: 04/24/16 Past Psychological History: No Psychological Hx Reported Additional Psychological History / Comment(s): PT RESIDES WITH HIS SPOUSE. HE IS INDEPENDENT. Smoking Status: Former smoker Past Alcohol Use History: None Reported Additional Past Alcohol Use History / Comment(s): STARTED SMOKING AT AGE 15, SMOKES 1/2 PPD Past Drug Use History: None Reported - Past Family History Father Family Medical History: Cancer, Congestive Heart Failure (CHF) Additional Family Medical History / Comment(s): COLON CANCER. FATHER OF CHF AT THE AGE OF 64YRS. Mother Family Medical History: CVA/TIA Additional Family Medical History / Comment(s): MOTHER AT THE AGE OF 86YRS FROM CVA. Brother(s) Family Medical History: Blood Disorder Additional Family Medical History / Comment(s): brother has antithrombin III deficiency and cardiolipin antibody Medications and Allergies Home Medications Medication Instructions Recorded Confirmed Type Omeprazole 20 mg PO DAILY 04/24/16 07/27/19 History Metoprolol Tartrate [Lopressor] 25 mg PO BID #60 tab 04/27/16 07/27/19 Rx Nitroglycerin Sl Tabs [Nitrostat] 0.4 mg SUBLINGUAL Q5M PRN #25 tab 04/27/16 07/27/19 Rx Aspirin 324 mg PO DAILY 11/27/16 07/27/19 History Albuterol Sulfate [Proair 1 puff INHALATION RT-DAILY 11/26/18 07/27/19 History Respiclick] Atorvastatin [Lipitor] 80 mg PO HS 11/26/18 07/27/19 History D-Methorphan/PE/Acetaminophen 2 cap PO Q4H PRN 07/27/19 07/27/19 History [Vicks Dayquil Liquicaps] Valsartan/Hydrochlorothiazide 1 tab PO DAILY 07/27/19 07/27/19 History [Valsartan-Hctz 160-12.5 mg Tab] Allergies Allergy/AdvReac Type Severity Reaction Status Date / Time No Known Allergies Allergy Verified 07/27/19 11:17 Physical Exam Vitals: Vital Signs Temp Pulse Pulse Pulse Resp BP BP 07/28/19 08:29 96 07/28/19 08:19 92 07/28/19 07:52 98.7 F 81 18 07/28/19 04:00 99.8 F H 97 18 119/70 07/28/19 00:00 98.9 F 89 18 07/27/19 19:18 97.6 F 80 19 07/27/19 19:01 98.1 F 70 18 111/60 07/27/19 17:56 98.1 F 70 18 111/60 07/27/19 16:09 65 18 105/69 07/27/19 14:39 98.2 F 65 18 109/64 07/27/19 12:30 18 07/27/19 11:00 60 13 112/81 07/27/19 10:34 18 07/27/19 10:30 62 103 H 10 L 110/74 07/27/19 10:21 07/27/19 10:11 98.9 F 103 H 18 110/74 BP Pulse Ox 07/28/19 08:29 07/28/19 08:19 07/28/19 07:52 127/80 93 L 07/28/19 04:00 92 L 07/28/19 00:00 116/72 92 L 07/27/19 19:18 145/69 94 L 07/27/19 19:01 98 07/27/19 17:56 98 07/27/19 16:09 97 07/27/19 14:39 97 07/27/19 12:30 07/27/19 11:00 96 07/27/19 10:34 07/27/19 10:30 95 07/27/19 10:21 93 L 07/27/19 10:11 93 L Intake and Output 07/27/19 07/28/19 07/28/19 22:59 06:59 14:59 Intake Total 71.87 Balance 71.87 Intake: Intake, IV Titration 71.87 Amount Heparin Sod,Pork in 0.45% 71.87 NaCl 25,000 unit In 0.45 % NaCl 1 250ml.bag @ 8.5 UNITS/KG/HR 9.982 mls/hr IV .Q24H [facility] Rx#: [id number] Other: Voiding Method Toilet Toilet # Voids 1 1 PHYSICAL EXAMINATION: HEENT: Head is atraumatic, normocephalic. Pupils equal, round. Neck is supple. There is no elevated jugular venous pressure. HEART EXAMINATION: Heart sounds regular, S1 and S2 normal. No murmur or gallop heard. CHEST EXAMINATION: Lungs are clear to auscultation and precussion. No chest wall tenderness is noted on palpation or with deep breathing. ABDOMEN: Soft, obese, nontender. Bowel sounds are heard. No organomegaly noted. EXTREMITIES: 2+ peripheral pulses with no evidence of peripheral edema and no calf tenderness noted. NEUROLOGIC patient is awake, alert and oriented x3. . Results 07/28/19 06:15 07/28/19 06:15 Cardiac Enzymes 07/27/19 07/27/19 07/27/19 Range/Units 10:30 10:30 16:05 AST 39 (17-59) U/L Troponin I <0.012 <0.012 (0.000-0.034) ng/mL 07/27/19 Range/Units 22:09 AST (17-59) U/L Troponin I <0.012 (0.000-0.034) ng/mL Coagulation 07/27/19 07/27/19 07/28/19 Range/Units 10:30 22:09 06:15 PT 9.8 (9.0-12.0) sec APTT 22.7 26.1 33.6 H (22.0-30.0) sec Lipids 07/28/19 Range/Units 06:15 Triglycerides 95 (<150) mg/dL Cholesterol 108 (<200) mg/dL HDL Cholesterol 21 L (40-60) mg/dL CBC 07/27/19 07/28/19 Range/Units 10:30 06:15 WBC 10.4 7.4 (3.8-10.6) k/uL RBC 5.42 5.04 (4.30-5.90) m/uL Hgb 16.0 15.1 (13.0-17.5) gm/dL Hct 49.6 46.4 (39.0-53.0) % Plt Count 221 183 (150-450) k/uL Comprehensive Metabolic Panel 07/27/19 07/28/19 Range/Units 10:30 06:15 Sodium 139 137 (137-145) mmol/L Potassium 4.5 4.4 (3.5-5.1) mmol/L Chloride 105 104 (98-107) mmol/L Carbon Dioxide 26 27 (22-30) mmol/L BUN 16 13 (9-20) mg/dL Creatinine 0.76 0.85 (0.66-1.25) mg/dL Glucose 116 H 100 H (74-99) mg/dL Calcium 8.8 8.4 (8.4-10.2) mg/dL AST 39 (17-59) U/L ALT 50 H (4-49) U/L Alkaline Phosphatase 109 (38-126) U/L Total Protein 6.6 (6.3-8.2) g/dL Albumin 3.9 (3.5-5.0) g/dL Current Medications Generic Name Dose Route Start Last Admin Trade Name Freq PRN Reason Stop Dose Admin Acetaminophen 650 mg 07/27/19 14:43 Tylenol Tab PO Q6HR PRN Mild Pain or Fever > 100.5 Hydrocodone Bitart/Acetaminophen 1 each 07/27/19 14:43 [place] 5-325 PO Q4HR PRN Moderate Pain Albuterol Sulfate 2.5 mg 07/28/19 08:00 07/28/19 08:18 Ventolin Nebulized INHALATION 2.5 mg RT-DAILY IRMA Administration Aspirin 325 mg 07/28/19 09:00 Aspirin PO DAILY IRMA Atorvastatin Calcium 80 mg 07/27/19 21:00 07/27/19 20:02 Lipitor PO 80 mg HS IRMA Administration Fluticasone Propionate 2 spray 07/27/19 19:45 07/27/19 20:31 Flonase Nasal [place] EA NOSTRIL 2 spray DAILY IRMA Administration Heparin Sodium (Porcine) 0 unit 07/27/19 14:44 07/27/19 23:17 Heparin IV 4,000 unit PER PROTOCOL PRN Administration Low PTT Protocol Hydrochlorothiazide 12.5 mg 07/28/19 09:00 Hydrodiuril PO DAILY IRMA Heparin Sodium/Sodium Chloride 250 mls @ 9.982 mls/hr 07/27/19 14:45 07/27/19 23:18 25,000 unit/ Sodium Chloride IV 11.5 units/kg/hr .Q24H [facility]MA 13.505 mls/hr Titration Protocol 8.5 UNITS/KG/HR Loratadine 10 mg 07/27/19 15:00 07/27/19 20:03 Claritin PO 10 mg DAILY IRMA Administration Metoprolol Tartrate 25 mg 07/27/19 21:00 07/27/19 20:03 Lopressor PO 25 mg BID IRMA Administration Naloxone HCl 0.2 mg 07/27/19 14:43 Narcan IV Q2M PRN Opioid Reversal Nitroglycerin 0.4 mg 07/27/19 12:05 Nitrostat SUBLINGUAL Q5M PRN Chest Pain Nitroglycerin 1 inch 07/27/19 18:00 07/28/19 04:07 Nitro-Bid Oint TOPICAL Not Given Q6HR IRMA Ondansetron HCl 4 mg 07/27/19 14:43 Zofran IVP Q8HR PRN Nausea And Vomiting Pantoprazole Sodium 40 mg 07/28/19 09:00 Protonix PO DAILY IRMA Valsartan 160 mg 07/28/19 09:00 Diovan PO DAILY IRMA Intake and Output 07/27/19 07/28/19 07/28/19 22:59 06:59 14:59 Intake Total 71.87 Balance 71.87 Intake: Intake, IV Titration 71.87 Amount Heparin Sod,Pork in 0.45% 71.87 NaCl 25,000 unit In 0.45 % NaCl 1 250ml.bag @ 8.5 UNITS/KG/HR 9.982 mls/hr IV .Q24H [facility] Rx#: [id number] Other: Voiding Method Toilet Toilet # Voids 1 1 07/28/19 06:15 07/28/19 06:15 EKG Interpretations (text) Sinus rhythm Assessment and Plan Assessment: 1 symptoms of chest pain, not related to activity, with troponins negative 3 and no ischemic changes noted on EKG #2 CAD with prior stenting to the proximal LAD, most recent cardiac catheterization in November of this year showed patent stent in the LAD with intermediate disease involving the OM which was unchanged compared to 2016 #3 hypertension #4 hyperlipidemia #5 obstructive sleep apnea #6 nicotine dependence #7 borderline diabetes Plan: From cardiology's perspective, we will add oral nitrate. Continue aspirin, valsartanhydrochlorothiazide, metoprolol and atorvastatin. From our standpoint, no further cardiac workup is warranted at this time. He will follow-up with Dr. Evangelista in the office on August 10 as previously scheduled. BELL TIER note has been reviewed, I agree with a documented findings and plan of care. Patient was seen and examined.
[2019-07-28] MEDS ORDERED: ISOSORBIDE MONONITRATE ER 30 MG TAB.ER.24H PO SCH (09:30)
[2019-07-28] MEDS: FLUTICASONE 50MCG/SPRAY NASAL 16GM EA NOSTRIL SCH (09:41)
[2019-07-28] MEDS: METOPROLOL TARTRATE 25 MG TAB PO SCH (09:42)
[2019-07-28] MEDS: LORATADINE 10 MG TAB PO SCH (09:42)
[2019-07-28 11:33] VITALS: BP 110/74; PULSE 80; TEMP 98.6
--- NOTE | 2019-07-28 14:04 | P.DS ---
Providers Date of admission: 07/27/19 12:05 Expected date of discharge: 07/28/19 Attending physician: Destiny Adams DO Consults: 07/27/19 12:05 Consult Physician Urgent Consulting Provider: Deonte Champagne Consult Reason/Comments: cp Do you want consulting provider notified?: Yes Primary care physician: Dmitriy Mcpherson Hospital Course: Discharge Diagnosis: Chest pain, no unstable angina CAD with hx of stent to the LAD HTN HLD BRIJESH Nicotine dependence broderline DM- A1C pending on discharge Hospital Course: Patient is a 53-year-old female with past medical history of coronary artery disease with ST segment elevated myocardial infarction requiring stent to the LAD in 2016, hypertension, dyslipidemia, borderline diabetes mellitus, and prior single episode of A. fib who presented to the emergency department with complaints of chest pain. In the emergency department he underwent an extensive evaluation. On arrival his vital signs were within normal limits. Initial EKG showed normal sinus rhythm at a rate of 68, no significant ST-T wave changes, ID 172, QRS 88, QT 376. Initial troponin was negative. Laboratory analysis was unremarkable and D-dimer was negative. He had Nitropaste applied to the emergency department and had already taken a dose of aspirin. Arrangements were made for chest pain observation. He was placed on a heparin gtt. Cardio was consulted. His troponins remained negative. His last heart cath was done in November 2018 and demonstrated a patent stent to the LAD with intermittent disease OM1 with 50% stenosis. At that point in time the elected for medical management as his blockages were improved. Again this admission cardio recommended medical management and added imdur to his regiment. His cholesterol profile was normal. He will follow-up with Dr. Lloyd on Aug 10 as previously scheduled. He will follow with Dr. Mcpherson and his A1C was pending at time of discharge. Patient seen and examined at bedside. No chest pain, SOB, nausea, or vomiting. Feeling well and wants to go home Vital signs reviewed and stable. General: non toxic, no distress, appears at stated age. obese Derm: warm, dry Head: atraumatic, normocephalic, symmetric Eyes: EOMI, no lid lag, anicteric sclera Mouth: no lip lesion, mucus membranes moist Cardiovascular: S1S2 reg, no murmur, positive posterior tibial pulse bilateral, Lungs: CTA bilateral, no rhonchi, no rales , no accessory muscle use Abdominal: soft, nontender to palpation, no guarding, no appreciable organomegaly Ext: no gross muscle atrophy, no edema, no contractures Neuro: CN II-XI grossly intact, no focal neuro deficits Psych: Alert, oriented, appropriate affect A total of 25 minutes of time were spent preparing this complex discharge summary . Patient Condition at Discharge: Stable Plan - Discharge Summary Discharge Rx Participant: No New Discharge Prescriptions: New Aspirin 81 mg PO DAILY chew Loratadine [Claritin] 10 mg PO DAILY tab Fluticasone Nasal [place] [Flonase Nasal [place]] 2 spray EA NOSTRIL DAILY spr Isosorbide Mononitrate ER [Imdur] 30 mg PO DAILY #30 tab.er.24h Continue Omeprazole 20 mg PO DAILY Metoprolol Tartrate [Lopressor] 25 mg PO BID #60 tab Nitroglycerin Sl Tabs [Nitrostat] 0.4 mg SUBLINGUAL Q5M PRN #25 tab PRN Reason: Chest Pain Albuterol Sulfate [Proair Respiclick] 1 puff INHALATION RT-DAILY Atorvastatin [Lipitor] 80 mg PO HS Valsartan/Hydrochlorothiazide [Valsartan-Hctz 160-12.5 mg Tab] 1 tab PO DAILY Discontinued Aspirin 324 mg PO DAILY D-Methorphan/PE/Acetaminophen [Vicks Dayquil Liquicaps] 2 cap PO Q4H PRN PRN Reason: Cold Symptoms Discharge Medication List Omeprazole 20 mg PO DAILY 04/24/16 [History] Metoprolol Tartrate [Lopressor] 25 mg PO BID #60 tab 04/27/16 [Rx] Nitroglycerin Sl Tabs [Nitrostat] 0.4 mg SUBLINGUAL Q5M PRN #25 tab 04/27/16 [Rx] Albuterol Sulfate [Proair Respiclick] 1 puff INHALATION RT-DAILY 11/26/18 [History] Atorvastatin [Lipitor] 80 mg PO HS 11/26/18 [History] Valsartan/Hydrochlorothiazide [Valsartan-Hctz 160-12.5 mg Tab] 1 tab PO DAILY 07/27/19 [History] Aspirin 81 mg PO DAILY chew 07/28/19 [Rx] Fluticasone Nasal [place] [Flonase Nasal [place]] 2 spray EA NOSTRIL DAILY spr 07/28/19 [Rx] Isosorbide Mononitrate ER [Imdur] 30 mg PO DAILY #30 tab.er.24h 07/28/19 [Rx] Loratadine [Claritin] 10 mg PO DAILY tab 07/28/19 [Rx] Follow up Appointment(s)/Referral(s): Epi Lloyd MD [Family Provider] - 2 Weeks Dmitriy Mcpherson MD [Primary Care Provider] - 1-2 days Activity/Diet/Wound Care/Special Instructions: Activity: as tolerated Diet: heart healthy Special Instructions: Your A1C was pending at discharge Discharge Disposition: HOME SELF-CARE
[2019-07-28 14:25] LABS: Hemoglobin A1C 6.1 % (4.0-6.0)
== END 2019-07-28 14:00 | disposition home or self-care (01) ==
LOC: EC 10:09 → 1SOBS 12:05
PROVIDERS: ADMIT Internal Medicine; ATTEND Internal Medicine
DX: R07.9 Chest pain, unspecified (principal); I25.10 Atherosclerotic heart disease of native coronary artery without angina pectoris; E78.5 Hyperlipidemia, unspecified; E66.9 Obesity, unspecified; Z68.34 Body mass index [BMI] 34.0-34.9, adult; G47.33 Obstructive sleep apnea (adult) (pediatric); R73.03 Prediabetes; R86.9 Unspecified abnormal finding in specimens from male genital organs; K21.9 Gastro-esophageal reflux disease without esophagitis; I12.9 Hypertensive chronic kidney disease with stage 1 through stage 4 chronic kidney disease, or unspecified chronic kidney disease; N18.9 Chronic kidney disease, unspecified; I25.2 Old myocardial infarction; F17.200 Nicotine dependence, unspecified, uncomplicated; Z87.442 Personal history of urinary calculi; K57.92 Diverticulitis of intestine, part unspecified, without perforation or abscess without bleeding; Z90.49 Acquired absence of other specified parts of digestive tract; Z95.5 Presence of coronary angioplasty implant and graft; Z82.49 Family history of ischemic heart disease and other diseases of the circulatory system; Z82.3 Family history of stroke; Z80.0 Family history of malignant neoplasm of digestive organs; Z83.2 Family history of diseases of the blood and blood-forming organs and certain disorders involving the immune mechanism; Z79.82 Long term (current) use of aspirin; Z79.899 Other long term (current) drug therapy
CPT/HCPCS: 93005 ×2; 96366 ×3; 96376 ×2; 96365; 99285; 36415; 94640; 85379; 80061; 80053; 80048; 83735; 84484; 85025 ×2; 85610; 85730 ×2; 83036; 71046; G0378 ×2; J1644 ×2

== ENCOUNTER 2020-05-12 07:37 | Day surgery (SDC) | payer BC ==
[2020-05-11 08:30] VITALS: BMI 33.5
[~2020-05-12 07:37] MED LIST: LACTATED RINGERS 1,000 ML IV SCH
[2020-05-12 07:51] VITALS: RESP 18; TEMP 97.8
[2020-05-12] MEDS ORDERED: LIDOCAINE 1% (10MG/ML) FOR IV START INTRADERMA ONE (07:53)
[2020-05-12] MEDS ORDERED: LACTATED RINGERS 1,000 ML IV ONE (07:53)
[2020-05-12 08:04] LABS: Glucose,Whole Blood 109 mg/dL (75-99)
[2020-05-12] MEDS ORDERED: PROPOFOL 10 MG/ML 20 ML VIAL IV ONE (08:11)
--- NOTE | 2020-05-12 08:45 | P.PCN ---
Date of Procedure: 05/12/20 Description of Procedure: BRIEF HISTORY: Patient is a 54-year-old male presenting for outpatient colonoscopy for screening for malignant neoplasm of the colon. Patient does have a prior history of colectomy with ostomy formation and subsequent reversal secondary to complicated diverticulitis. Last colonoscopy was performed after the surgery. PROCEDURE PERFORMED: Colonoscopy with polypectomy. PREOPERATIVE DIAGNOSIS: Screening for malignant neoplasm of the colon. ESTIMATED BLOOD LOSS: Minimal. IV sedation per Anesthesia. PROCEDURE: After informed consent was obtained, the patient, was brought into the endoscopy unit. IV sedation was administered by Anesthesia under continuous monitoring. Digital rectal examination was normal. Initially the Olympus CF-190 flexible video colonoscope was then inserted in the rectum, gradually advanced into the cecum without any difficulty. Careful examination was performed as the scope was gradually being withdrawn. Ileocecal valve and the appendiceal orifice were visualized and appeared normal. Prep was excellent. Mucosa of the cecum, ascending colon, transverse colon, descending colon, and rectum appeared normal. The patient had 2 polyps removed with cold snare polypectomy from the ascending colon measuring 5 mm in size and from the transverse colon measuring 3 mm in size. The patient had a 1 mm descending colon polyp removed with cold forcep polypectomy. A few scattered diverticula noted throughout the colon. R etroflexion was performed in the rectum and no lesions were seen. The patient tolerated the procedure well. IMPRESSION: 2 flat polyps removed with cold snare polypectomy from the ascending colon and transverse colon. Diminutive descending colon polyp removed with cold forcep polypectomy. Mild pandiverticulosis. RECOMMENDATIONS: Findings of this examination were discussed with the patient and his . Okay to resume diet. Okay to resume medications. Await pathology from polypectomies. Would recommend repeat colonoscopy in 5 years for colon polyps pending pathology from polyp.
[2020-05-12 08:56] VITALS: BP 110/75; PULSE 64
== END 2020-05-12 09:21 | disposition home or self-care (01) ==
LOC: ORWHC2ENDO 07:37
PROVIDERS: ATTEND Internal Medicine
DX: Z12.11 Encounter for screening for malignant neoplasm of colon (principal); D12.2 Benign neoplasm of ascending colon; K63.5 Polyp of colon; K21.9 Gastro-esophageal reflux disease without esophagitis; I20.9 Angina pectoris, unspecified; I25.2 Old myocardial infarction; J45.909 Unspecified asthma, uncomplicated; F17.210 Nicotine dependence, cigarettes, uncomplicated; Z90.49 Acquired absence of other specified parts of digestive tract; Z98.890 Other specified postprocedural states; Z79.84 Long term (current) use of oral hypoglycemic drugs; Z79.82 Long term (current) use of aspirin; Z79.899 Other long term (current) drug therapy
CPT/HCPCS: 88305; 45380; 45385; J2704

== ENCOUNTER → 2020-10-12 | Outpatient (CLI) | payer BC ==
--- NOTE | 2020-10-13 07:26 | MR ---
EXAMINATION TYPE: MR lumbar spine wo con DATE OF EXAM: 10/12/2020 COMPARISON: NONE HISTORY: Low back pain, numbness down left thigh for 2 years. TECHNIQUE: Multiplanar, multisequence imaging of the lumbar spine is performed without IV contrast. FINDINGS: Sagittal images of the lumbar spine show vertebral body heights to appear satisfactory. Exa ggerated lumbar lordosis. Multilevel disc desiccation and mild to moderate multilevel disc space narr owing greatest at L4-L5 level. The conus medullaris is normal in position and signal ending inferior T12 level. Mild to moderate multilevel anterior spurring with heterogeneity, small hemangioma involv ing the inferior posterior L1 vertebra sagittal image 7. 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 Axial images at T12-L1 level shows mild broad-based posterior disc protrusion mildly effacing the ant erior thecal sac. Axial images at L1-L2 levels with mild broad-based posterior disc protrusion mildly effacing the ante rior thecal sac. The bilateral neural foramina are patent. Axial images at L2-L3 level are within normal limits. Axial images at L3-L4 level shows mild facet degenerative changes and ligament flavum hypertrophy eff acing posterior lateral thecal sac. There is mild to moderate broad disc bulge with central disc prot rusion component mildly effacing the anterior thecal sac, there is mild bilateral anterior inferior n eural foraminal narrowing. Axial images at L4-L5 level show mild facet degenerative changes bilaterally. There is mild broad dis c bulge with right paracentral disc protrusion component facing anterolateral thecal sac, patent bila teral neural foramina. Axial images at L5-S1 level shows moderate facet degenerative changes and ligamentum flavum hypertrop hy. There is left lateral disc protrusion component. Tiny central disc protrusion component minimally effaces the anterior thecal sac. Patent right-sided neural foramina. There is [id number] left- sided anterior neural foraminal narrowing encroaching along the anterior margin of the extraforaminal left L5 nerve seen best sagittal image 4 and axial images 3 and 4. Paraspinal muscle bulk is maintained. IMPRESSION: Exaggerated lumbar lordosis with multilevel degenerative changes as detailed above, atten tion to L5-S1 level where left eccentric disc herniation appear to encroach along the anterior margin of the extraforaminal left L5 nerve and would correlate with patient's left-sided radiculopathy type symptoms.
== END ==
LOC: RADMRIMAIN 17:52
PROVIDERS: ATTEND Family Medicine
DX: M47.816 Spondylosis without myelopathy or radiculopathy, lumbar region (principal)
CPT/HCPCS: 72148

== ENCOUNTER 2020-10-25 13:48 | Emergency (ER) | payer BC ==
--- NOTE | 2020-10-25 16:31 | XR ---
EXAMINATION TYPE: XR chest 2V DATE OF EXAM: 10/25/2020 COMPARISON: 07/27/2019 INDICATION: Cough and congestion TECHNIQUE: Frontal and lateral views of the chest are obtained. FINDINGS: The heart size is normal. The pulmonary vasculature is normal. There is some minimal peripheral subsegmental infiltrate in the left lateral lung base. Atelectasis o r atypical pneumonia could be considered. There is some hyperinflation flattening the diaphragms sugg estive for emphysematous change. IMPRESSION: 1. Peripheral left basilar atelectasis or atypical pneumonia.
--- NOTE | 2020-10-25 17:29 | ED ---
General Adult HPI - General Chief complaint: Fever Stated complaint: COVID+,TIMOTHY Time Seen by Provider: 10/25/20 17:00 Source: patient, RN notes reviewed Mode of arrival: ambulatory Limitations: no limitations - History of Present Illness Initial comments: Patient is a pleasant 55-year-old male presenting to the emergency department for fever not feeling well. Onset of symptoms was 6 days ago. Patient has cough and shortness of breath. Occasional clear sputum. No sinus congestion. No nausea or vomiting or abdominal pain. Patient has had some diarrhea. Patient has had fatigue. Fevers have been intermittent. Patient has chills and myalgias. - Related Data Home Medications Medication Instructions Recorded Confirmed Omeprazole 20 mg PO DAILY PRN 04/24/16 10/25/20 Valsartan/Hydrochlorothiazide 1 tab PO DAILY 07/27/19 10/25/20 [Valsartan-Hctz 160-12.5 mg Tab] Atorvastatin [Lipitor] 40 mg PO HS 05/11/20 10/25/20 Acetaminophen Tab [Tylenol Tab] 1,000 mg PO Q6HR PRN 10/25/20 10/25/20 Aspirin EC [Ecotrin] 325 mg PO DAILY 10/25/20 10/25/20 Empagliflozin [Jardiance] 25 mg PO DAILY 10/25/20 10/25/20 Previous Rx's Medication Instructions Recorded Metoprolol Tartrate [Lopressor] 25 mg PO BID #60 tab 04/27/16 Nitroglycerin Sl Tabs [Nitrostat] 0.4 mg SUBLINGUAL Q5M PRN #25 tab 04/27/16 Isosorbide Mononitrate ER [Imdur] 30 mg PO DAILY #30 tab.er.24h 07/28/19 Allergies Allergy/AdvReac Type Severity Reaction Status Date / Time No Known Allergies Allergy Verified 10/25/20 17:50 Review of Systems ROS Statement: Those systems with pertinent positive or pertinent negative responses have been documented in the HPI. ROS Other: All systems not noted in ROS Statement are negative. Constitutional: Reports: fever, chills Eyes: Denies: eye pain ENT: Denies: ear pain Respiratory: Reports: cough, dyspnea Cardiovascular: Denies: chest pain Endocrine: Reports: fatigue Gastrointestinal: Reports: diarrhea. Denies: abdominal pain, nausea, vomiting Genitourinary: Denies: dysuria Musculoskeletal: Denies: back pain Skin: Denies: rash Neurological: Denies: weakness Past Medical History Past Medical History: Asthma, Diabetes Mellitus, GERD/Reflux, Hyperlipidemia, Hypertension, Myocardial Infarction (VT) Additional Past Medical History / Comment(s): "STATED HAD STRESS TEST AT [facility] FEBRUARY 18 2016 AND IT WAS NEG", 04-24-16 STEMI, KIDNEY STONES-PASSED ON HIS OWN, DIVERTICULITIS, 4 ABD INC HERNIA'S AND HAS HAD SURGERY ON ONE OF THEM. 11/26/18 CARDIAC CATH AFTER FAILED STRESS TEST. Last Myocardial Infarction Date:: 04/24/16 History of Any Multi-Drug Resistant Organisms: None Reported Past Surgical History: Bowel Resection, Heart Catheterization, Heart Catheterization With Stent, Hernia Repair Additional Past Surgical History / Comment(s): 04-24-16 HEART CATH W/ STENT TO LAD. BOWEL RESECTION OLGA TO DIVERTICULAR DX ,COLOSTOMY THEN REVERSAL-PT STATED HAS HAD TOTAL OF 7 SX FOR THIS, ABD HERNIA REPAIR W/ MESH, COLONOSCOPIES. Past Anesthesia/Blood Transfusion Reactions: No Reported Reaction Date of Last Stent Placement:: 04/24/2016 Past Psychological History: No Psychological Hx Reported Smoking Status: Current every day smoker Past Alcohol Use History: None Reported Past Drug Use History: None Reported - Past Family History Father Family Medical History: Cancer, Congestive Heart Failure (CHF) Additional Family Medical History / Comment(s): COLON CANCER. FATHER OF CHF AT THE AGE OF 64YRS. Mother Family Medical History: CVA/TIA Additional Family Medical History / Comment(s): MOTHER AT THE AGE OF 86YRS FROM CVA. Brother(s) Family Medical History: Blood Disorder Additional Family Medical History / Comment(s): brother has antithrombin III d eficiency and cardiolipin antibody General Exam Limitations: no limitations General appearance: alert, in no apparent distress Head exam: Present: normocephalic Eye exam: Present: normal appearance Neck exam: Present: normal inspection Respiratory exam: Present: normal lung sounds bilaterally Cardiovascular Exam: Present: tachycardia GI/Abdominal exam: Present: soft. Absent: tenderness Extremities exam: Present: normal inspection. Absent: pedal edema, calf tenderness Neurological exam: Present: alert Psychiatric exam: Present: normal affect, normal mood Skin exam: Present: normal color Course Vital Signs 10/25/20 10/25/2010/25/21 15:55 18:00 19:10 Temperature 102.1 F H 99.8 F H Pulse Rate 111 H 97 Respiratory 24 18 Rate Blood Pressure 123/81 138/85 O2 Sat by Pulse 94 L 95 Oximetry EKG Findings - EKG Comments: EKG Findings:: Sinus tachycardia 107. ME 146. QRS 88. QT 300. QTc 400. Left axis. Poor R-wave progression. No acute ST change. Medical Decision Making - Medical Decision Making Patient reevaluated and updated. Patient is receptive to receiving monoclonal antibodies. - Lab Data Result diagrams: 10/25/20 17:49 10/25/20 17:49 Lab Results 10/25/20 10/25/20 10/25/20 Range/Units 17:49 17:49 17:49 WBC 4.5 (3.8-10.6) k/uL RBC 6.61 H (4.30-5.90) m/uL Hgb 19.7 H* (13.0-17.5) gm/dL Hct 59.8 H* (39.0-53.0) % MCV 90.4 (80.0-100.0) fL MCH 29.8 (25.0-35.0) pg MCHC 32.9 (31.0-37.0) g/dL RDW 13.8 (11.5-15.5) % Plt Count 114 L (150-450) k/uL MPV 8.3 Neutrophils % 75 % Lymphocytes % 16 % Monocytes % 7 % Eosinophils % 1 % Basophils % 1 % Neutrophils # 3.4 (1.3-7.7) k/uL Lymphocytes # 0.7 L (1.0-4.8) k/uL Monocytes # 0.3 (0-1.0) k/uL Eosinophils # 0.0 (0-0.7) k/uL Basophils # 0.0 (0-0.2) k/uL PT 11.0 (9.0-12.0) sec INR 1.0 (<1.2) APTT 23.6 (22.0-30.0) sec Sodium 134 L (137-145) mmol/L Potassium 4.7 (3.5-5.1) mmol/L Chloride 102 (98-107) mmol/L Carbon Dioxide 21 L (22-30) mmol/L Anion Gap 11 mmol/L BUN 24 H (9-20) mg/dL Creatinine 1.28 H (0.66-1.25) mg/dL Est GFR (CKD-EPI)AfAm 72 (>60 ml/min/1.73 sqM) Est GFR (CKD-EPI)NonAf 63 (>60 ml/min/1.73 sqM) Glucose 110 H (74-99) mg/dL Plasma Lactic Acid Garcia (0.7-2.0) mmol/L Calcium 8.6 (8.4-10.2) mg/dL Magnesium 2.0 (1.6-2.3) mg/dL Total Bilirubin 0.8 (0.2-1.3) mg/dL AST 43 (17-59) U/L ALT 37 (4-49) U/L Alkaline Phosphatase 69 (38-126) U/L Lactate Dehydrogenase 872 H (313-618) U/L C-Reactive Protein 22.1 H (<10.0) mg/L Total Protein 7.3 (6.3-8.2) g/dL Albumin 4.2 (3.5-5.0) g/dL Coronavirus (PCR) (Not Detectd) 10/25/20 10/25/20 Range/Units 17:49 19:10 WBC (3.8-10.6) k/uL RBC (4.30-5.90) m/uL Hgb (13.0-17.5) gm/dL Hct (39.0-53.0) % MCV (80.0-100.0) fL MCH (25.0-35.0) pg MCHC (31.0-37.0) g/dL RDW (11.5-15.5) % Plt Count (150-450) k/uL MPV Neutrophils % % Lymphocytes % % Monocytes % % Eosinophils % % Basophils % % Neutrophils # (1.3-7.7) k/uL Lymphocytes # (1.0-4.8) k/uL Monocytes # (0-1.0) k/uL Eosinophils # (0-0.7) k/uL Basophils # (0-0.2) k/uL PT (9.0-12.0) sec INR (<1.2) APTT (22.0-30.0) sec Sodium (137-145) mmol/L Potassium (3.5-5.1) mmol/L Chloride (98-107) mmol/L Carbon Dioxide (22-30) mmol/L Anion Gap mmol/L BUN (9-20) mg/dL Creatinine (0.66-1.25) mg/dL Est GFR (CKD-EPI)AfAm (>60 ml/min/1.73 sqM) Est GFR (CKD-EPI)NonAf (>60 ml/min/1.73 sqM) Glucose (74-99) mg/dL Plasma Lactic Acid Garcia 1.1 (0.7-2.0) mmol/L Calcium (8.4-10.2) mg/dL Magnesium (1.6-2.3) mg/dL Total Bilirubin (0.2-1.3) mg/dL AST (17-59) U/L ALT (4-49) U/L Alkaline Phosphatase (38-126) U/L Lactate Dehydrogenase (313-618) U/L C-Reactive Protein (<10.0) mg/L Total Protein (6.3-8.2) g/dL Albumin (3.5-5.0) g/dL Coronavirus (PCR) Detected A (Not Detectd) - Radiology Data Radiology results: image reviewed (Chest x-ray shows some left peripheral atelectasis versus atypical pneumonia) Critical Care Time Critical Care Time: Yes Total Critical Care Time: 33 Disposition Clinical Impression: Pneumonia due to COVID-19 virus Disposition: HOME SELF-CARE Condition: Stable Instructions (If sedation given, give patient instructions): Fever in Adults (ED) Additional Instructions: [id number] Tylenol and Motrin as needed. Into new [id number] vitamin C, vitamin D, and zinc daily. Return for difficulty breathing, uncontrolled fevers, not tolerating oral intake, worsening symptoms or other concerns. Follow-up to primary care physician in the next day or 2 for recheck. Is patient prescribed a controlled substance at d/c from ED?: No Referrals: Dmitriy Mcpherson MD [Primary Care Provider] - 1-2 days Time of Disposition: 20:21
[2020-10-25] MEDS ORDERED: ALBUTEROL HFA INHALER INHALATION PRN (17:30)
[2020-10-25] MEDS ORDERED: ACETAMINOPHEN TAB 500 MG TAB PO PRN (17:30)
[2020-10-25] MEDS ORDERED: ALBUTEROL HFA INHALER INHALATION STA (17:30)
[2020-10-25] MEDS ORDERED: ACETAMINOPHEN TAB 500 MG TAB PO STA (17:30)
[2020-10-25 18:00] LABS: Basophils % (A) 1 %; Eosinophils % (A) 1 %; Lymphocytes # (A) 0.7 k/uL (1.0-4.8); Lymphocytes % (A) 16 %; MCH 29.8 pg (25.0-35.0); MCHC 32.9 g/dL (31.0-37.0); MCV 90.4 fL (80.0-100.0); Mean Platelet Volume 8.3; Monocytes # (A) 0.3 k/uL (0-1.0); Monocytes % (A) 7 %; Neutrophils # (A) 3.4 k/uL (1.3-7.7); Neutrophils % (A) 75 %; Platelet Count 114 k/uL (150-450); RBC 6.61 m/uL (4.30-5.90); RDW 13.8 % (11.5-15.5); WBC 4.5 k/uL (3.8-10.6)
[2020-10-25 18:02] LABS: HGB 19.7 gm/dL (13.0-17.5)
[2020-10-25 18:04] LABS: HCT 59.8 % (39.0-53.0)
[2020-10-25 18:07] VITALS: RESP 18
[2020-10-25 18:18] LABS: Albumin 4.2 g/dL (3.5-5.0); C Reactive Protein 22.1 mg/L (<10.0); Calcium 8.6 mg/dL (8.4-10.2); Partial Thromboplastin Time 23.6 sec (22.0-30.0); Total Bilirubin 0.8 mg/dL (0.2-1.3); Total Protein 7.3 g/dL (6.3-8.2)
[2020-10-25 18:25] LABS: Potassium 4.7 mmol/L (3.5-5.1)
[2020-10-25] MEDS ORDERED: SODIUM CHLORIDE 0.9% 1,000 ML IV STA (18:36)
[2020-10-25] MEDS ORDERED: ALBUTEROL HFA INHALER INHALATION SCH (20:00)
[2020-10-25] MEDS ORDERED: BAMLANIVIMAB (EUA) 700 MG, ETESEVIMAB (EUA) 1,400 MG in SODIUM CHLORIDE 0.9% 50 ML IVPB ONE (21:30)
[2020-10-25 21:52] VITALS: BP 116/76; PULSE 78; TEMP 98.8
[2020-10-26 12:06] LABS: Ferritin 301.4 ng/mL (22.0-322.0)
== END 2020-10-25 23:15 | disposition home or self-care (01) ==
LOC: EC 13:48
DX: J12.82 Pneumonia due to coronavirus disease 2019 (principal); U07.1 COVID-19; F17.200 Nicotine dependence, unspecified, uncomplicated; E11.9 Type 2 diabetes mellitus without complications; K21.9 Gastro-esophageal reflux disease without esophagitis; E78.5 Hyperlipidemia, unspecified; I10 Essential (primary) hypertension; I25.2 Old myocardial infarction; Z79.82 Long term (current) use of aspirin; Z79.899 Other long term (current) drug therapy; Z95.5 Presence of coronary angioplasty implant and graft; Z79.84 Long term (current) use of oral hypoglycemic drugs
CPT/HCPCS: 36415; 71046; 80053; 82728; 83605; 83615; 83735; 84145; 85025; 85610; 85730; 86140; 87040; 87635; 93005; 94640; 96361; 96365; 99291